=== PATIENT | male | born 1985 | race Caucasian/White ===

== ENCOUNTER 2021-01-15 08:58 | Emergency (ER) | payer OTHER, SELFPAY ==
[2021-01-15 09:08] VITALS: BP 133/85; PULSE 97; RESP 18; TEMP 36.9; O2SAT 97; BMI 33.3
--- NOTE | 2021-01-15 09:32 | ED_ITS ---
HPI - Nausea/Vomiting/Diarrhea General Chief complaint: Nausea/Vomiting/Diarrhea Stated complaint: VOMITING Time Seen by Provider: 01/15/21 09:25 Source: patient Mode of arrival: ambulatory Limitations: no limitations History of Present Illness HPI Narrative: 35 yo male previously healthy here with complaints of vomiting and diarrhea. The patient tells me that he had symptoms which began yesterday. He has not had any vomiting episodes yesterday and feels like this is improved. His last episode was last evening. He tells me he did have 2 episodes of diarrhea but feels like this is improving. His son had similar symptoms 3 days ago which lasted 24 hours and then resolved. He denies any abdominal pain, fevers, chills, cough, shortness of breath, chest pain, neck pain, joint pain, rashes. Associated nausea: Yes Related Data Allergies Allergy/AdvReac Type Severity Reaction Status Date / Time No Known Allergies Allergy Unverified 06/30/20 16:46 Review of Systems Review of Systems: Yes all other systems are reviewed and are negative Constitutional: Constitutional: Reports no additional constitutional complaints, Denies body ache(s), Denies chills, Denies fever(s), Denies headache(s) and Denies weakness Eyes: Eyes: Reports no additional eye complaints and Denies change in vision ENT: Reports system reviewed and no additional complaints, except as documented, Denies dizziness, Denies headache(s), Denies nasal congestion, Denies nasal discharge and Denies neck pain Cardiovascular: Cardiovascular: Reports no additional cardiovascular complaints, Denies chest pain, Denies leg edema and Denies dyspnea Respiratory: Respiratory: Reports no additional respiratory complaints, Denies cough and Denies dyspnea Gastrointestinal: Gastrointestinal: Reports no additional gastrointestinal complaints, Denies abdominal pain, Reports diarrhea, Reports nausea and Reports vomiting Genitourinary: Genitourinary: Denies urinary incontinence Musculoskeletal: Musculoskeletal: Reports no additional musculoskeletal complaints, Denies back pain, Denies arthralgias, Denies joint swelling, Denies neck pain, Denies numbness and Denies tingling Integumentary/Breasts: Skin/Breast: Reports system reviewed and no additional complaints, except as docu and Denies rash Neurologic: Reports system reviewed and no additional complaints, except as documented, Denies Abnormal speech present, Denies dizziness, Denies headache(s), Denies numbness, Denies tingling and Denies weakness [facility] Past Medical History Attestation statement: The following information was validated with the patient. Source: old records reviewed and nursing notes reviewed Social History Social History Advance Directives: No Advance Directives Information Provided: No Physical Exam Vital Signs: Vital Signs: Last Vital Signs Temp 98.5 F 01/15/21 09:08 Pulse 97 01/15/21 09:08 Resp 18 01/15/21 09:08 BP 133/85 01/15/21 09:08 Pulse Ox 97 01/15/21 09:08 Body Mass Index 33.3 Const: General: cooperative, healthy appearing, comfortable and no acute distress Orientation/consciousness: patient oriented x3 Limitations: no limitations HENMT: Head: Yes normal to inspection Ears: hearing grossly normal bilaterally General nose exam: Normal external nose present Face and sinus: Yes normal facial exam Mouth: Normal oral and palatal mucosa present Throat: Yes posterior oropharynx normal Eyes: General: appearance normal, both eyes and all related structures Pupils: Equal, round and reactive pupils present Neck: Neck: Yes normal visual inspection Chest: Chest palpation & inspection: normal inspection of the chest Resp: Effort & Inspection: normal respiratory effort Auscultation: clear to auscultation bilaterally Cardio: Rate: regular rate Rhythm: regular rhythm Peripheral pulses: Peripheral pulses 2+ throughout GI: Inspection: Yes normal to inspection Palpation (GI): Soft to palpation and nontender Auscultation: normal bowel sounds Back/Spine/Pelvis: Thoracic/Lumbar Spine: thoracic and lumbar spine normal to inspection Skin: General skin exam: no rashes or lesions noted Neuro: General: patient oriented x3, no focal motor deficits and normal sensation to monofilament Cranial nerves: Yes Equal, round and reactive pupils present Cognition (Neuro): normal cognition Speech: No Abnormal speech present Gait exam (Neuro): Normal gait present Motor exam (neuro): 5/5 motor strength present throughout Extrem: General: Yes normal to inspection Course Course Course Narrative: 35-year-old male here with vomiting and diarrhea for the last 24 hours which seems to be improving. Patient tells me his son had similar symptoms at home several days ago which resolved on its own. No focal abdominal pain on exam. Patient is drinking in the room and tolerating p.o. with no prob lems hemodynamically stable. Will check COVID screen. 1030-COVID screen negative. Likely viral gastroenteritis. Abdomen soft nontender. Drinking fluids with no additional vomiting episodes. Discussed with patient. Reviewed worrisome signs and symptoms and when to return to the emergency department including severe abdominal pain, 2 or more vomiting episodes, black or bloody stools. Comfortable discharge home. MDM - Nausea/Vomiting/Diarrhea Medical Records Attestation: I reviewed the patient's medical records. Lab Data Attestation: I reviewed the patient's lab results. Labs: Lab Results 01/15/21 Range/Units 09:51 COVID-19 ([facility]) Negative (Negative) COVID-19 Clin Com See Note Discharge Plan Discharge Clinical Impression: Gastroenteritis Patient Disposition: Home, Self-Care Instructions: Gastroenteritis (ED) Additional Instructions: Your COVID screen today was negative This is likely viral Increase fluids, rest Return for worsening abdominal pain, 2 or more episodes of vomiting, black or bloody stools Referrals: Physician,None [Primary Care Provider] - 2 days Stand Alone Forms: Work/School Release Interventions: ED Discharge Assessment Last Done: 01/15/21 10:34 Discharge Date/Time: 01/15/21 10:37
[2021-01-15 10:18] LABS: COVID-19 Test Negative (Negative); IDNOW Serial# 9DD0AD1C
== END 2021-01-15 10:37 | disposition home or self-care (01) ==
PROVIDERS: Nurse Practitioner Family; Emergency Provider Emergency Medicine
DX: K52.9 Noninfective gastroenteritis and colitis, unspecified (principal); Z20.822 Contact with and (suspected) exposure to COVID-19; R11.2 Nausea with vomiting, unspecified
CPT/HCPCS: 36415; 87635; 99283

== ENCOUNTER 2021-08-15 09:01 | Outpatient (REF) | payer OTHER, SELFPAY | END 2021-08-15 09:02 | disposition home or self-care (01) | LOC: HO.LAB 09:01 | PROVIDERS: Visit Provider Internal Medicine | DX: Z20.822 Contact with and (suspected) exposure to COVID-19 (principal) | CPT/HCPCS: C9803; U0003; U0005 ==

== ENCOUNTER 2022-05-15 17:11 | Emergency (ER) | payer OTHER, SELFPAY ==
--- NOTE | ~2022-05-15 | XR_ITS ---
EXAMINATION: XR SHOULDER, LEFT CLINICAL INFORMATION: Shoulder pain. Work-related injury. COMPARISON: None TECHNIQUE: Three views of the left shoulder. FINDINGS: The bones and soft tissues are normal. No fracture. Glenohumeral and acromioclavicular alignment is anatomic with normal joint space. No abnormal soft tissue calcifications. XR/XR shoulder LT min 2V IMPRESSION: Normal left shoulder.
--- NOTE | ~2022-05-15 | XR_ITS ---
EXAMINATION: XR CERVICAL SPINE CLINICAL INFORMATION: Shoulder pain. Work-related injury. COMPARISON: None TECHNIQUE: 4 views of the cervical spine. FINDINGS: Vertebral alignment is normal without spondylolisthesis. Vertebral body heights are normal. No fractures are evident. Intervertebral disc heights are well-preserved. Facet joints are unremarkable. Prevertebral soft tissues are normal. XR/XR cervical spine 2V IMPRESSION: Normal radiographs of the cervical spine.
[2022-05-15 19:05] VITALS: BP 131/76; PULSE 89; RESP 16; TEMP 36.6; O2SAT 98; BMI 33.3
--- NOTE | 2022-05-15 20:58 | ED.EXTPRO ---
HPI - Extremity Problem General Chief complaint: Extremity Injury, Upper Stated complaint: left shoulder/ arm pain Source: patient Mode of arrival: ambulatory Limitations: no limitations History of Present Illness HPI Narrative: 36-year-old male presents with injury to his left shoulder and trapezius after lifting heavy boxes earlier today. States the pain starts in his shoulder and radiates to his scapula and down the elbow. Does not report any other trauma, and states to have full range of motion although tender to raise his arms over his head. He did not report any neck pain, numbness and tingling, or loss of strength or sensation to the extremity. MD Complaint: extremity pain Onset (ago): day(s) (1) Pain Consistency: constant Location: left and upper extremity Severity scale (1-10): 5 Quality: aching Radiation: distal Exacerbating factors: range of motion and palpation Associated symptoms: denies other symptoms Context: other (Physical exertion) Related Data Allergies Allergy/AdvReac Type Severity Reaction Status Date / Time No Known Allergies Allergy Verified 05/15/22 19:05 Review of Systems Review of Systems: Constitutional: No Fever, No Chills ENT/Mouth: No Ear Pain, No Hoarseness, No sore throat Eyes: No Eye Pain, No Swelling, No Redness, No Foreign Body Cardiovascular: No Chest Pain, No SOB Respiratory: No Cough, No Dyspnea Gastrointestinal: No Nausea, No Vomiting, No Diarrhea, No abdominal Pain Genitourinary: No Dysuria, No Hematuria Musculoskeletal: positive left shoulder and trapezius pain, No Myalgias, No Joint Swelling Skin: No Skin lacerations, No rash Neuro: No Weakness, No Numbness, No Paresthesias, No Loss of Consciousness, No Dizziness, No Headache Psych: No Anxiety/Panic, No Depression Heme/Lymph: no easy bruising, no Lymphadenopathy Endocrine: No Polyuria, No Polydipsia Yes all other systems are reviewed and are negative [facility] Past Medical History Attestation statement: The following information was validated with the patient. Source: old records reviewed Social History Social History Advance Directives: No Advance Directives Information Provided: No Physical Exam Vital Signs: Vital Signs: Last Vital Signs Temp 98 F 05/15/22 19:05 Pulse 89 05/15/22 19:05 Resp 16 05/15/22 19:05 BP 131/76 05/15/22 19:05 Pulse Ox 98 05/15/22 19:05 O2 Del Method 05/15/22 19:05 BMI result Body Mass Index 33.3 Appearance: Alert. Oriented X3. No acute distress. Eyes: Pupils equal, round and reactive to light. ENT: Pharynx normal. Neck: Normal inspection. Neck supple. No vertebral tenderness or step-offs. No nuchal rigidity. Full range of motion active and passive and against resistance. CVS: Normal heart rate and rhythm. Pulses normal. Respiratory: No respiratory distress. Breath sounds normal. Abdomen: Soft and nontender. Skin: Skin warm and dry. Normal skin color. Normal skin turgor. Extremities: No lower extremity edema. Tenderness noted to the mid scapula, palpable muscle spasm noted. He has full passive and active range of motion although tender with adduction and abduction to the left shoulder. No acromion process tenderness. Strength 5/5. No tenderness to the elbow or cervical spine. Neuro: No motor deficit. No sensory deficit. Cranial nerves 2-12 intact. Course Course Course Narrative: 36-year-old male presents to the emergency department for evaluation after hurting his shoulder while lifting boxes over his head earlier today. States the pain starts in his shoulder on the left side and radiates to his scapula. Most of his pain is in his trapezius, does not have any vertebral tenderness or tenderness to the ligaments of the shoulder. Has full strength and range of motion active and passive to all extremities. Will order some x-rays. 21:45 x-rays are negative for acute findings. Supportive measures encouraged, alternating Tylenol and Motrin. Following up with [facility] in the next 3 days. Patient verbalized understanding of and agrees plan of care discharge home. Verbalized understanding of signs symptoms indicating need for emergent intervention. MDM - Extremity (Nontraumatic) MDM Narrative Medical decision making narrative: Musculoskeletal strain, tendon ligament injury Medical Records Attestation: I reviewed the patient's medical records. Imaging Data Cervical spine and shoulder x-ray: Attestation: I personally reviewed and interpreted this imaging study as follows: Radiologist's impression: EXAMINATION: XR CERVICAL SPINE CLINICAL INFORMATION: Shoulder pain. Work-related injury. COMPARISON: None TECHNIQUE: 4 views of the cervical spine. FINDINGS: Vertebral alignment is normal without spondylolisthesis. Vertebral body heights are normal. No fractures are evident. Intervertebral disc heights are well-preserved. Facet joints are unremarkable. Prevertebral soft tissues are normal.? XR/XR cervical spine 2V IMPRESSION: Normal radiographs of the cervical spine. EXAMINATION: XR SHOULDER, LEFT CLINICAL INFORMATION: Shoulder pain. Work-related injury.? COMPARISON: None? TECHNIQUE: Three views of the left shoulder. FINDINGS: The bones and soft tissues are normal. No fracture. Glenohumeral and acromioclavicular alignment is anatomic with normal joint space. No abnormal soft tissue calcifications.? XR/XR shoulder LT min 2V IMPRESSION: Normal left shoulder. Discharge Plan Discharge Clinical Impression: Musculoskeletal strain Patient Disposition: Home, Self-Care Instructions: Cervical Strain (ED), Muscle Strain (ED) Additional Instructions: You were evaluated for left shoulder and muscle pain after a work related injury. X-rays are negative for acute findings. Please follow-up with [facility] in the next 3 days if symptoms persist. Alternate Tylenol 650 mg every 6 hours as needed and Motrin 600 mg every 6 hours as needed for pain management. Her last dose of Motrin was given to you at 20:00. Your next dose is due at 02:00. Consider taking Tylenol at 23:00 so you can take a medication every 3 hours to help alleviate pain. write down with time you take these medications to prevent accidental overdose. Thank you for choosing this emergency department for evaluation. Please follow-up with primary care physician as needed. Return to the emergency department for any new, concerning, or worsening symptoms. Referrals: [facility] [Provider Group] - 3 days (Left shoulder strain) Stand Alone Forms: Work/School Release Interventions: ED Discharge Assessment Last Done: 05/15/22 21:57 Discharge Date/Time: 05/15/22 21:58
[2022-05-15] MEDS: Ibuprofen 600 MG TABLET PO (21:38)
== END 2022-05-15 21:58 | disposition home or self-care (01) ==
PROVIDERS: Emergency Provider Emergency Medicine
DX: S46.912A Strain of unspecified muscle, fascia and tendon at shoulder and upper arm level, left arm, initial encounter (principal); X50.0XXA Overexertion from strenuous movement or load, initial encounter; Y93.89 Activity, other specified; Y92.59 Other trade areas as the place of occurrence of the external cause; Y99.0 Civilian activity done for income or pay
CPT/HCPCS: 72040; 73030; 99283

== ENCOUNTER 2022-08-27 09:30 | Emergency (ER) | payer SELFPAY ==
--- NOTE | ~2022-08-27 | CT_ITS ---
CT head/brain wo IV con CLINICAL INFORMATION: Headache dizziness COMPARISON: No prior CT scan available for comparison. TECHNIQUE: Department standard protocol. This CT examination was performed using dose optimization techniques as appropriate, variously including the following: *Automated exposure control *Adjustment of mA and/or kV according to patient size (this includes techniques or standardized protocols for targeted exams where dose is matched to indication/reason for exam; i.e. extremities or head) *Use of iterative reconstruction technique DLP: 715 mGy-cm FINDINGS: CEREBRAL HEMISPHERES: There is no evidence of intra-axial or extra-axial mass, hemorrhage or acute infarct. BRAIN PARENCHYMA: Normal ilra-white matter differentiation. SUBDURAL SPACE: No bleed. BASAL GANGLIA AND PINEAL GLAND: Unremarkable VENTRICLES: Symmetric and normal in size. CEREBELLUM AND BRAINSTEM: No space-occupying mass, hemorrhage or acute infarct. CEREBELLOPONTINE ANGLES: No lesion found. ORBITS: No intraorbital mass. VESSELS: Unremarkable SKULL BASE: Unremarkable INCLUDED SINUSES AT SKULL BASE: Clear SKULL AND SKIN: No fracture or bone lesion found. CT/CT head/brain wo IV con IMPRESSION: No CT evidence of intracranial space-occupying mass, bleed or infarct.
[2022-08-27 09:40] VITALS: BP 144/82; PULSE 76; RESP 18; TEMP 36.6; O2SAT 98; BMI 33.3
[2022-08-27 14:43] VITALS: BP 119/82; PULSE 73; RESP 16; O2SAT 97
--- NOTE | 2022-08-27 14:49 | PC.NURSE ---
This RN met with pt, pt is A&O x4. C/o headache, dizziness upon waking up and seeing a purple halo in left eye intermittently. Pt is not currently dizzy and has a mild headache. VSS. Pt has call dunne in place. Awaiting MD to see pt
--- NOTE | 2022-08-27 16:01 | ECG_ITS ---
Test Reason : headache Blood Pressure : / mmHG Vent. Rate : 064 BPM Atrial Rate : 064 BPM P-R Int : 168 ms QRS Dur : 088 ms QT Int : 412 ms P-R-T Axes : 051 077 024 degrees QTc Int : 425 ms Normal sinus rhythm Normal ECG No previous ECGs available Referred By: Marybeth Millard Electronically Signed By:ADILSON DIXON MD
--- NOTE | 2022-08-27 16:01 | ED.GENADULT ---
HPI - General Adult General Chief complaint: General Medical Stated complaint: Headache/L eye vision issues Time Seen by Provider: 08/27/22 16:00 Source: patient Mode of arrival: ambulatory Limitations: no limitations History of Present Illness HPI narrative: 37 yeear old male with no PMHx presents to the ED with 1 week history of left eye blurriness and headache. He describes the headache as throbbing in nature associated with light and sound sensitivity associated with short episode of lightheadedness in the morning. He reports that the head ache and left eye blurriness happen concurrently. He denies any recent infection, nausea or vomiting. Onset (ago): week(s) Location: head and eyes (Lef eye) Radiation: non-radiation Severity: moderate Pain Consistency: constant Related Data Previous Rx's Medication Instructions Recorded [id number] 1 cap PO Q8H PRN pain #14 caps 08/27/22 50 mg-300 mg-40 mg capsule (Fioricet) Allergies Allergy/AdvReac Type Severity Reaction Status Date / Time No Known Allergies Allergy Verified 05/15/22 19:05 Review of Systems Review of Systems: Constitutional: No Fever, No Chills ENT/Mouth: No sore throat, No Rhinorrhea, No Swallowing Difficulty Eyes: +left Eye Pain, No Swelling, No Redness Cardiovascular: No Chest Pain, No SOB, No Orthopnea, No Edema Respiratory: No Cough, No Sputum, No Wheezing, No dyspnea Gastrointestinal: No Nausea, No Vomiting, No Diarrhea, No abdominal Pain, No Hematochezia, No Melena Genitourinary: No Dysuria, No Urinary Frequency, No Hematuria Musculoskeletal: No joint pain, No Myalgias Skin: No Skin Lesions, No rash Neuro: No Weakness, No Numbness, No Dizziness, +Headache , + Lightheadedness Psych: No Anxiety/Panic, No Depression Heme/Lymph: No Bruising, No Lymphadenopathy Endocrine: No Polyuria, No Polydipsia PMFSH Past Medical History Attestation statement: The following information was validated with the patient. Social History Social History Advance Directives: No Advance Directives Information Provided: Yes Physical Exam ED Vital Signs: Vital Signs - 24 hr 08/27/22 09:40 08/27/22 14:43 08/27/22 18:12 Temperature 98 F 97.9 F Pulse Rate 76 73 68 Respiratory Rate 18 16 17 Blood Pressure 144/82 H 119/82 122/68 Pulse Oximetry 98 97 99 Oxygen Delivery Method Room Air Room Air Room Air BMI result Body Mass Index 33.3 Appearance: Alert. Oriented X3. No acute distress. Head/Face: Frontal sinuses tenderness Eyes: Pupils equal, round and reactive to light. ENT: Pharynx normal. ,No erythema Neck: Normal inspection. Neck supple. CVS: Normal heart rate and rhythm. Pulses normal. Respiratory: No respiratory distress. Breath sounds normal. Lung CTA Abdomen: Soft and nontender. +BS x4 Skin: Skin warm and dry. Normal skin color. Normal skin turgor. No rashes. Extremities: No lower extremity edema. Neuro: Oriented X 3. No motor deficit. No sensory deficit. CN II-XII intact. Course Course Course Narrative: 37-year-old male presents to the ER for evaluation of headache, dizziness, left eye blurriness for the last 4 days. No history of migraines. Neuro exam is nonfocal. Most likely ocular migraine however given this is the 1st event will get CT scan and lab workup. EKG also ordered for dizziness. Results pending dispo and improvement. Will medicate with IV Toradol, Reglan, Benadryl and reassess. Reevaluation(s) Reevaluation #1: Lab workup was unremarkable. EKG without ischemic changes. CT scan is normal. Patient is feeling much better after the medications. At this time is stable for discharge home with ppio Gutiérrez for migraines. He will work on getting a PCP. Medications Administered Discontinued Medications Generic Name Dose Route Start Last Admin Trade Name Freq PRN Reason Stop Dose Admin Diphenhydramine HCl 50 mg 08/27/22 16:26 08/27/22 17:33 Diphenhydramine Hcl 50 Mg/Ml Vial IVPUSH 08/27/22 16:27 50 mg ONCE ONE Administration Sodium Chloride 1,000 mls @ 999 mls/hr 08/27/22 16:30 08/27/22 18:35 Ns IVCONT 08/27/22 17:30 Infused .Q1H1M TAMMY Infusion Ketorolac Tromethamine 30 mg 08/27/22 16:26 08/27/22 17:33 Ketorolac Tromethamine 30 Mg/Ml Vial IVPUSH 08/27/22 16:27 30 mg ONCE ONE Administration Metoclopramide HCl 10 mg 08/27/22 16:26 08/27/22 17:33 Metoclopramide Hcl 10 Mg/2 Ml Vial IVPUSH 08/27/22 16:27 10 mg ONCE ONE Administration Medical Decision Making MDM Narrative Medical decision making narrative: 37 year old male with no PMHx presents to the ED with 1 week history of left eye blurriness , throbbing headache with phonophobia and photophobia and discrete episode of lightheadedness in the morning. On exam VSS, Lung CTA, frontal sinuses tenderness, photophobia. Concern for Migraine vs Intracranial mass vs Glaucoma. Low suspicion for CVA, Tension headache. Plan: Labs, EKG, CT head, Toradol/Benadryl/Reglan Lab Data Result diagrams: 08/27/22 16:26 08/27/22 16:26 Labs: Lab Results 08/27/22 08/27/22 08/27/22 Range/Units 16:26 16:26 16:26 WBC 11.2 H (4.8-10.8) X10*3/uL RBC 5.58 (4.60-5.80) X10*6/uL Hgb 14.7 (14.0-18.0) g/dl Hct 46.1 (42.0-52.0) % MCV 82.6 (80.0-98.0) fL MCH 26.3 L (27.0-33.0) pg MCHC 31.9 (31.0-36.0) g/dl RDW 13.3 (11.0-16.0) % Plt Count 393 (160-400) X10*3/uL MPV 9.6 (9.4-12.4) fL Immature Gran % (Auto) 0.4 (0.0-0.4) % Neut % (Auto) 69.7 (45-73) % Lymph % (Auto) 21.9 (20-40) % Perry % (Auto) 6.1 (2-11) % Eos % (Auto) 1.6 (0-4) % Baso % (Auto) 0.3 (0-2) % Lymph # (Auto) 2.4 (1.2-4.9) X10*3/uL Perry # (Auto) 0.7 (0.1-1.2) X10*3/uL Eos # (Auto) 0.2 (0.0-0.4) X10*3/uL Baso # (Auto) 0.0 (0.0-0.2) X10*3/uL Abs Immat Gran (auto) 0.05 H (0.00-0.03) X10*3/uL Absolute Neuts (auto) 7.8 (2.0-8.3) x10*3/uL Absolute Nucleated RBC 0.000 (0.0-0.012) X10*3/uL Nucleated RBC % (auto) 0.0 (0.0-0.2) /100WBC Sodium 139 (135-145) mmol/L Potassium 4.6 (3.3-5.1) mmol/L Chloride 102 (96-108) mmol/L Carbon Dioxide 25 (22-29) mmol/L Anion Gap 17 (12-20) BUN 14 (9-16) mg/dL Creatinine 0.78 (0.5-1.4) mg/dL Estim Creat Clear Calc 136.8 Estimated GFR > 60 Random Glucose 83 (60-115) mg/dL Calcium 9.8 (8.4-10.2) mg/dL Magnesium 2.3 (1.6-2.6) mg/dL Total Bilirubin 0.5 (0.0-1.0) mg/dL Direct Bilirubin 0.2 (0.0-0.5) mg/dL AST 19 (5-37) U/L ALT 29 (0-40) U/L Alkaline Phosphatase 93 (39-117) U/L Total Protein 7.8 (6.5-8.0) g/dL Albumin 4.6 (3.5-5.0) g/dL Urine Opiates Screen (Not Detect) Urine Fentanyl Screen (Not Detect) Ur Barbiturates Screen (Not Detect) Ur Phencyclidine Scrn (Not Detect) Ur Amphetamines Screen (Not Detect) U Benzodiazepines Scrn (Not Detect) Urine Cocaine Screen (Not Detect) U Marijuana (THC) Screen (Not Detect) Ethyl Alcohol mg/dL COVID-19 ([facility]) Negative (Negative) COVID-19 Clin Com See Note Influenza Type A ([facility]) Influenza Type B ([facility]) Influenza A & B Note 08/27/22 08/27/22 08/27/22 Range/Units 16:26 16:26 16:28 WBC (4.8-10.8) X10*3/uL RBC (4.60-5.80) X10*6/uL Hgb (14.0-18.0) g/dl Hct (42.0-52.0) % MCV (80.0-98.0) fL MCH (27.0-33.0) pg MCHC (31.0-36.0) g/dl RDW (11.0-16.0) % Plt Count (160-400) X10*3/uL MPV (9.4-12.4) fL Immature Gran % (Auto) (0.0-0.4) % Neut % (Auto) (45-73) % Lymph % (Auto) (20-40) % Perry % (Auto) (2-11) % Eos % (Auto) (0-4) % Baso % (Auto) (0-2) % Lymph # (Auto) (1.2-4.9) X10*3/uL Perry # (Auto) (0.1-1.2) X10*3/uL Eos # (Auto) (0.0-0.4) X10*3/uL Baso # (Auto) (0.0-0.2) X10*3/uL Abs Immat Gran (auto) (0.00-0.03) X10*3/uL Absolute Neuts (auto) (2.0-8.3) x10*3/uL Absolute Nucleated RBC (0.0-0.012) X10*3/uL Nucleated RBC % (auto) (0.0-0.2) /100WBC Sodium (135-145) mmol/L Potassium (3.3-5.1) mmol/L Chloride (96-108) mmol/L Carbon Dioxide (22-29) mmol/L Anion Gap (12-20) BUN (9-16) mg/dL Creatinine (0.5-1.4) mg/dL Estim Creat Clear Calc Estimated GFR Random Glucose (60-115) mg/dL Calcium (8.4-10.2) mg/dL Magnesium (1.6-2.6) mg/dL Total Bilirubin (0.0-1.0) mg/dL Direct Bilirubin (0.0-0.5) mg/dL AST (5-37) U/L ALT (0-40) U/L Alkaline Phosphatase (39-117) U/L Total Protein (6.5-8.0) g/dL Albumin (3.5-5.0) g/dL Urine Opiates Screen Not Detected (Not Detect) Urine Fentanyl Screen Not Detected (Not Detect) Ur Barbiturates Screen Not Detected (Not Detect) Ur Phencyclidine Scrn Not Detected (Not Detect) Ur Amphetamines Screen Not Detected (Not Detect) U Benzodiazepines Scrn Not Detected (Not Detect) Urine Cocaine Screen Not Detected (Not Detect) U Marijuana (THC) Screen Not Detected (Not Detect) Ethyl Alcohol < 10 mg/dL COVID-19 ([facility]) (Negative) COVID-19 Clin Com Influenza Type A ([facility]) Cancelled Influenza Type B ([facility]) Cancelled Influenza A & B Note Cancelled ECG Data Attestation: I personally reviewed and interpreted this ECG as follows: Prior ECG tracings: not available for review Interpretation: Normal sinus rhythm, ventricular rate 64 beats per minute, normal QTC, normal QRS, no ST segment elevations or depressions Critical Care Time Critical Care Time Critical Care Time: No Discharge Plan Discharge Clinical Impression: Migraine Patient Disposition: Home, Self-Care Instructions: Migraine Headache (ED) Additional Instructions: Your lab workup today was normal. Your head CT was normal. Most likely experience migraine headache. Take the prescribed medications as needed for this. Recommend following with primary care doctor. If you develop new or worsening symptoms call 911 or come back to the ER for further evaluation. Prescriptions: New uozybmwpdm-ijkblawlrqrqi-[id number] [Fioricet] 50-300-40 mg capsule 1 cap PO Q8H PRN (Reason: pain) Qty: 14 0RF Stand Alone Forms: Work/School Release
[2022-08-27 16:42] LABS: MANUAL DIFF FLAG NO
[2022-08-27 16:46] LABS: Basophils Percent Auto 0.3 % (0-2); Eosinophils Absolute Auto 0.2 X10*3/uL (0.0-0.4); Eosinophils Percent Auto 1.6 % (0-4); Hematocrit 46.1 % (42.0-52.0); Hemoglobin 14.7 g/dl (14.0-18.0); Imm Gran Abs Auto 0.05 X10*3/uL (0.00-0.03); Imm Gran Pct Auto 0.4 % (0.0-0.4); Lymphocytes Absolute Auto 2.4 X10*3/uL (1.2-4.9); Lymphocytes Percent Auto 21.9 % (20-40); Mean Corpuscular HGB Conc 31.9 g/dl (31.0-36.0); Mean Corpuscular Hemoglobin 26.3 pg (27.0-33.0); Mean Corpuscular Volume 82.6 fL (80.0-98.0); Mean Platelet Volume 9.6 fL (9.4-12.4); Monocytes Absolute Auto 0.7 X10*3/uL (0.1-1.2); Monocytes Percent Auto 6.1 % (2-11); Neutrophils Absolute Auto 7.8 x10*3/uL (2.0-8.3); Neutrophils Percent Auto 69.7 % (45-73); Platelet Count 393 X10*3/uL (160-400); Red Blood Count 5.58 X10*6/uL (4.60-5.80); Red Cell Distribution Width 13.3 % (11.0-16.0); White Blood Count 11.2 X10*3/uL (4.8-10.8)
[2022-08-27 16:59] LABS: Ethanol < 10 mg/dL
[2022-08-27 17:00] LABS: COVID-19 Test Negative (Negative); IDNOW Serial# BCCEAD1C
[2022-08-27 17:02] LABS: Alanine Aminotransferase 29 U/L (0-40); Albumin Level 4.6 g/dL (3.5-5.0); Alkaline Phosphatase 93 U/L (39-117); Anion Gap 17 (12-20); Aspartate Amino Transferase 19 U/L (5-37); Bilirubin Direct 0.2 mg/dL (0.0-0.5); Bilirubin Total 0.5 mg/dL (0.0-1.0); Blood Urea Nitrogen 14 mg/dL (9-16); Calcium 9.8 mg/dL (8.4-10.2); Carbon Dioxide 25 mmol/L (22-29); Chloride 102 mmol/L (96-108); Creatinine Clr Calc Pharmacy 136.8; Estimated Glomerular Filt Rate > 60; Glucose Random 83 mg/dL (60-115); Magnesium 2.3 mg/dL (1.6-2.6); Potassium 4.6 mmol/L (3.3-5.1); Sodium 139 mmol/L (135-145); Total Protein 7.8 g/dL (6.5-8.0)
[2022-08-27 17:03] LABS: Amphetamine Screen Urine Not Detected (Not Detect); Barbiturates, Urine Not Detected (Not Detect); Benzodiazepines Screen Urine Not Detected (Not Detect); Cannabinoid Screen Urine Not Detected (Not Detect); Cocaine Screen Urine Not Detected (Not Detect); Fentanyl, urine Not Detected (Not Detect); Phencyclidine Screen Urine Not Detected (Not Detect)
[2022-08-27] MEDS: diphenhydrAMINE HCL 50 MG/ML VIAL IVPUSH (17:33)
[2022-08-27] MEDS: 0.9 % Sodium Chloride 1,000 ML 999 ML IVCONT (17:33)
[2022-08-27] MEDS: Ketorolac Tromethamine 30 MG/ML VIAL IVPUSH (17:33)
[2022-08-27] MEDS: Metoclopramide HCl 10 MG/2 ML VIAL IVPUSH (17:33)
[2022-08-27 17:39] LABS: Opiate Screen Urine Not Detected (Not Detect)
[2022-08-27 18:12] VITALS: BP 122/68; PULSE 68; RESP 17; TEMP 36.6; O2SAT 99
== END 2022-08-27 18:59 | disposition home or self-care (01) ==
PROVIDERS: Physician Assistant; Emergency Provider Internal Medicine
DX: G43.909 Migraine, unspecified, not intractable, without status migrainosus (principal); Z20.822 Contact with and (suspected) exposure to COVID-19
CPT/HCPCS: 70450; 80048; 80076; 80307; 82077; 83735; 85025; 87635; 93005; 96361; 96374; 96375; 99284; J1200; J1885; J2765

== ENCOUNTER 2024-05-08 08:49 | Emergency (ER) | payer SELFPAY ==
[2024-05-08 08:58] VITALS: BP 150/91; PULSE 71; RESP 16; TEMP 36.6; O2SAT 98; BMI 40.4
--- NOTE | 2024-05-08 09:15 | ED.GENADULT ---
HPI - General Adult General Chief complaint: Wound/Laceration Stated complaint: toe infection Time Seen by Provider: 05/08/24 09:12 Source: patient Mode of arrival: ambulatory Limitations: no limitations History of Present Illness HPI narrative: Patient is a 38-year-old male who presents emergency department for evaluation of right great toe concern. Reports over the past 2 days he has been experiencing green drainage, swelling and redness with pain. He wears closed toe shoes at work and reports increased pain while working, he missed work today. He states he is not a diabetic. He denies any injury. He admits to having an ingrown toenail that he cut but then the toe became swollen Related Data Previous Rx's ?Medication ?Instructions ?Recorded izckwmhxvv-uorgthifpzqra-hnvqgoew 1 cap PO Q8H PRN pain #14 caps 08/27/22 50 mg-300 mg-40 mg capsule (Fioricet) amoxicillin 875 mg-potassium 1 tab PO BID #14 tabs 05/08/24 clavulanate 125 mg tablet Allergies Allergy/AdvReac Type Severity Reaction Status Date / Time No Known Allergies Allergy Verified 05/08/24 09:00 Review of Systems Review of Systems: Yes all other systems are reviewed and are negative PMFSH Past Medical History Attestation statement: The following information was validated with the patient. Source: old records reviewed Physical Exam ED Vital Signs: Vital Signs - 24 hr 05/08/24 08:58 Temperature 97.8 F Pulse Rate 71 Respiratory Rate 16 Blood Pressure 150/91 H Pulse Oximetry 98 Oxygen Delivery Method Room Air BMI result Body Mass Index 40.4 Appearance: Alert.?Oriented to person, place and time. No acute distress.?Normal affect. CVS: Heart sounds normal. Normal heart rate and rhythm.? Pulses normal.?? Respiratory: No respiratory distress.? Lung sounds clear to auscultation bilaterally?? Skin: Skin warm and dry.? Normal skin color.? Right great toe medial aspect of the nail plate with indurated erythema, no fluctuance, and tenderness upon palpation. Crusted green discharge along the distal tip. No erythema or streaking up the leg. Extremities: No lower extremity edema.? Full range of motion to right foot and digits. Neuro: Moves all extremities spontaneously. Sensation intact bilaterally. Ambulates with normal steady gait. Medical Decision Making Medical Decision Making MDM Narrative: Patient is a 38-year-old male who presents to the emergency department for evaluation of right great toe concern as per HPI. On examination consistent with acute paronychia, at this time no areas of fluctuance that would be amenable to drainage, has been actively draining over the past 2 days. Digital pressure test is negative, no blanching. Does not appear consistent with felon, herpetic leonard. Will treat with course of oral antibiotics, and advised outpatient follow-up for persistent symptoms. At this time no signs of systemic toxicity. Differential Diagnosis Differential Diagnoses: The differential diagnosis associated with the presentation includes (See narrative above) External Record Review External record reviewed: Outpatient record Prescription Management I considered prescription management with: Pain Medication and Antibiotic Discharge Plan Discharge Clinical Impression: Paronychia of great toe of right foot Patient Disposition: Home, Self-Care Instructions: Paronychia (ED) Additional Instructions: You can take ibuprofen 200 mg, 3 tablets (600mg) every 6-8 hours as needed for pain, in addition to Tylenol 500 mg, 2 tablets (1,000mg) every 4-6 hours as needed for pain, but not to exceed 3 doses daily (3,000mg).? Complete the entire course of antibiotics as prescribed. Follow-up as needed for persistent symptoms. Prescriptions: New amoxicillin-pot clavulanate 875-125 mg tablet 1 tab PO BID Qty: 14 0RF No Action qlxumuoahu-detczvoflxdow-twdi [Fioricet] 50-300-40 mg capsule 1 cap PO Q8H PRN (Reason: pain) Qty: 14 0RF Referrals: Physician,None [Primary Care Provider] - Stand Alone Forms: Work/School Release Print Language: Maldivian
[2024-05-08 10:07] VITALS: BP 00/00; PULSE 0; RESP 0; TEMP -17.7; TEMP 0; O2SAT 0
== END 2024-05-08 10:08 | disposition home or self-care (01) ==
PROVIDERS: Emergency Provider Emergency Medicine
DX: L03.031 Cellulitis of right toe (principal); M79.674 Pain in right toe(s)
CPT/HCPCS: 99282; 99283

== ENCOUNTER 2024-08-30 05:56 | Emergency (ER) | payer MEDICAID, SELFPAY ==
--- NOTE | 2024-08-30 | ECG_ITS ---
Test Reason : Dizziness Blood Pressure : / mmHG Vent. Rate : 057 BPM Atrial Rate : 057 BPM P-R Int : 160 ms QRS Dur : 092 ms QT Int : 452 ms P-R-T Axes : 047 087 018 degrees QTc Int : 439 ms Sinus bradycardia Otherwise normal ECG When compared with ECG of 27-AUG-2022 16:56, No significant change was found Referred By: Generic ED Physician Electronically Signed By:Taran Johnston
--- NOTE | ~2024-08-30 | CT_ITS ---
EXAMINATION: CT HEAD WITHOUT CONTRAST CLINICAL INFORMATION: Headache COMPARISON: None available. TECHNIQUE: Contiguous axial imaging was performed from the skull base to vertex without intravenous administration of contrast. This CT examination was performed using dose optimization techniques as appropriate, variously including the following: *Automated exposure control *Adjustment of mA and/or kV according to patient size (this includes techniques or standardized protocols for targeted exams where dose is matched to indication/reason for exam; i.e. extremities or head) *Use of iterative reconstruction technique DLP: 679 mGy-cm FINDINGS: There is no evidence of acute intracranial hemorrhage or territorial infarction. No abnormal mass effect or midline shift is seen. Davis to white matter differentiation is well preserved. No extra-axial fluid collections are identified. The ventricles are normal in size. There is no abnormal attenuation within the brain parenchyma. The osseous structures and soft tissues are normal. The mastoid air cells and visualized portions of the paranasal sinuses are well-aerated. CT/CT head/brain wo IV con IMPRESSION: No acute intracranial pathology. Electronically signed by: Sajan Sierra MD 08/30/2024 08:42 AM [facility]
[2024-08-30 06:15] VITALS: BP 141/88; PULSE 73; RESP 16; TEMP 36.8; O2SAT 96; BMI 39.0
[2024-08-30 06:53] LABS: MANUAL DIFF FLAG NO
--- NOTE | 2024-08-30 07:05 | ED_ITS ---
HPI - General Adult General Chief complaint: General Medical Stated complaint: flu like Time Seen by Provider: 08/30/24 06:39 Source: patient Mode of arrival: ambulatory Limitations: no limitations History of Present Illness ED Provider: KVNG GORDON PA-C HPI narrative: 39 year old male with no significant pmhx presents to the emergency department today for evaluation of headache, runny nose, cough, nausea and diarrhea x24 hours. Patient states that after completing a drill yesterday he got into his car and began experiencing these symptoms. Initially he described the sensation as dizziness however on further questioning, he describes more of a headache. Reports constant throbbing sensation in his head. He does not feel lightheaded. Denies room spinning sensation. Endorses associated nausea without vomiting and photophobia. Admits to dry cough, nasal congestion, and one episode of loose stool yesterday. He reports completing these drills one weekend every month. He has never had these symptoms following a drill in the past. Denies head strike/ injury/ fall during drill. Reports staying adequately hydrated. At present, admits to continued headache. 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 Denies history of migraines. No known sick contacts. Denies fever, chills, sore throat, chest pain, palpitations, sob, abdominal pain, constipation, dysuria, hematuria. Related Data Previous Rx's ?Medication ?Instructions ?Recorded ldrylabbqo-wbikngpmtypqk-zoolvncw 1 cap PO Q8H PRN pain #14 caps 08/27/22 50 mg-300 mg-40 mg capsule (Fioricet) amoxicillin 875 mg-potassium 1 tab PO BID #14 tabs 05/08/24 clavulanate 125 mg tablet gumyxtu-pqrvscxzncely-jkomgnqg 250 1 tab PO Q6H PRN pain (scale score 08/30/24 mg-250 mg-65 mg tablet (Excedrin 4-6) #10 tabs Migraine) diphenhydramine HCl 50 mg tablet 50 mg PO Q8H PRN nausea and 08/30/24 (Benadryl Allergy) vomiting #20 tabs metoclopramide HCl 10 mg tablet 10 mg PO Q6H PRN nausea and 08/30/24 (Reglan) vomiting #10 tabs Allergies Allergy/AdvReac Type Severity Reaction Status Date / Time No Known Allergies Allergy Verified 08/30/24 06:17 Review of Systems 2 Review of Systems: Constitutional: No fever, chills, fatigue, night sweats, weight changes ENT/Mouth: No ear pain, hearing loss, nasal congestion, sinus pain, rhinorrhea, sore throat Eyes: No eye pain, swelling, redness, vision changes, discharge Cardio: No chest pain, palpitations, BELL, orthopnea, peripheral edema Pulm: No SOB, cough, sputum, wheezing, dyspnea, hemoptysis GI: No nausea, vomiting, hematemesis, abdominal pain, diarrhea, constipation, hematochezia, melena : No irregular bleeding, dysuria, frequency, urgency, hesitancy, hematuria, flank pain, urinary flow changes, urinary incontinence or retention MSK: No back pain, neck pain, joint pain, myalgias Skin: No lesions, rashes Neuro: No weakness, numbness, paresthesias, LOC, dizziness, +headache Psych: No anxiety/panic, depression, SI/HI, AH/VH All other systems reviewed and are negative. [facility] Past Medical History Attestation statement: The following information was validated with the patient. Source: old records reviewed and nursing notes reviewed Social History Social History Smoked in Last 30 Days: No Use of substances other than those prescribed or required for medical reasons: No Advance Directives: No Advance Directives Information Provided: No Do you have a plan to hurt others: No Plan Physical Exam ED Vital Signs: Vital Signs - 24 hr 08/30/24 06:15 08/30/24 07:29 08/30/24 07:29 Temperature 98.2 F Pulse Rate 73 61 64 Respiratory Rate 16 Blood Pressure 141/88 H 118/84 132/87 Pulse Oximetry 96 Oxygen Delivery Method Room Air 08/30/24 07:29 08/30/24 09:27 08/30/24 09:28 Temperature 0 F L Pulse Rate 69 63 63 Respiratory Rate 18 18 Blood Pressure 134/95 H 115/73 115/73 Pulse Oximetry 98 98 Oxygen Delivery Method Room Air Room Air BMI result Body Mass Index 39.0 Vital signs stable General: Well appearing, in no acute distress. Skin: Warm, dry, intact. No rashes or lesions. Head: Normocephalic, atraumatic. EENT: Hearing is intact b/l. Conjunctiva clear. PERRLA. Noted photophobia. No nystagmus. Moist mucous membranes.? Neck: Supple without LAD Cardiac: Chest wall symmetric. RRR. No JVD. Lungs: Normal respiratory effort without accessory muscle use. CTA bilaterally Abdomen: Soft, non-tender, non-distended. No rebound tenderness or guarding. Positive BS x4. No CVAT. Back: No midline spinous or paraspinal tenderness. No step off deformity. Ext: Upper and lower extremities atraumatic, without tenderness, deformity, swelling or erythema. Full ROM throughout. No calf tenderness. Neuro: AOx3. Normal speech. Strength 5/5 intact throughout. No saddle anesthesia. Sensation intact to light touch. NV intact distally. Normal uhcots-ly-deyn, flfv-vk-tsaa. Ambulating with steady gait. Psych: Appropriate mood and affect. Responds appropriately to questions. Course Course Course Narrative: 919 -- cbc without leukocytosis or left shift. no anemia. h&h stable. chemistry without acute elecctrolyte abnormality requiring intervention. no ivett. normal liver function. troponin wnl. ortho vitals negative. ct head/brain without bleed or mass. ekg showing sinus bradycardia w/ rate of 57 bpm, no acute ischemic changes or st elevations. negative covid/ flu/ rsv. > on re-evaluation, patient reports almost complete resolution of headache following toradol/ benadryl/ reglan admin. given unremarkable work up, patient stable for discharge home at this time. Patient has remained stable throughout ED visit today. Discussed worrisome signs and symptoms and when to return to the ED. All questions answered at this time. Patient is agreeable with disposition and stable for discharge. Medications Administered Discontinued Medications Generic Name Dose Route Start Last Admin Trade Name Freq PRN Reason Stop Dose Admin Diphenhydramine HCl 25 mg 08/30/24 07:11 08/30/24 08:02 Diphenhydramine Hcl 50 Mg/Ml Vial IVPUSH 08/30/24 07:12 25 mg ONCE ONE Administration Ketorolac Tromethamine 15 mg 08/30/24 07:11 08/30/24 08:03 Ketorolac Tromethamine 15 Mg/Ml Vial IVPUSH 08/30/24 07:12 15 mg ONCE ONE Administration Metoclopramide HCl 10 mg 08/30/24 07:11 08/30/24 08:02 Metoclopramide Hcl 10 Mg/2 Ml Vial IVPUSH 08/30/24 07:12 10 mg ONCE ONE Administration Medical Decision Making Medical Decision Making [facility] Narrative: 39 year old male with no significant pmhx presents to the emergency department today for evaluation of headache, runny nose, cough, nausea and diarrhea x24 hours. vital signs stable. he is nontoxic appearing and in NAD. lying comfortably on the exam bed. exam nonfocal. cerebellum intact. abd soft nd/nt, no rebound/ guarding. lungs clear. ambulating with steady gait. Differential diagnosis includes migraine vs tension type headache, viral syndrome, anemia, electrolyte abnormality, dehydration, arrhythmia, gastroenteritis. No headache red flags. Neurologic exam without evidence of meningismus. No focal neurologic findings. Presentation not consistent with acute intracranial bleed including SAH (lack of risk factors, headache history). 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 Temporal arteritis unlikely, as is acute angle closure glaucoma given history and physical findings. Presentation not consistent with other acute, emergent causes of headache at this time. Plan: pain medication, labs, ekg, ortho vitals, CT head, re-evaluation. Differential Diagnosis Differential Diagnoses: The differential diagnosis associated with the presentation includes as above. Admission/Observation Not indicated. Lab Data [facility] Lab Attestation statement: I reviewed the patient's lab results. as above. 08/30/24 06:49 08/30/24 06:49 Labs: Lab Results 08/30/24 Range/Units 06:49 WBC 10.4 (4.8-10.8) X10*3/uL RBC 5.19 (4.60-5.80) X10*6/uL Hgb 14.1 (14.0-18.0) g/dl Hct 41.9 L (42.0-52.0) % MCV 80.7 (80.0-98.0) fL MCH 27.2 (27.0-33.0) pg MCHC 33.7 (31.0-36.0) g/dl RDW 13.5 (11.0-16.0) % Plt Count 392 (160-400) X10*3/uL MPV 9.6 (9.4-12.4) fL Immature Gran % (Auto) 0.5 H (0.0-0.4) % Neut % (Auto) 59.1 (45-73) % Lymph % (Auto) 31.3 (20-40) % [place] % (Auto) 6.7 (2-11) % Eos % (Auto) 2.0 (0-4) % Baso % (Auto) 0.4 (0-2) % Lymph # (Auto) 3.3 (1.2-4.9) X10*3/uL [place] # (Auto) 0.7 (0.1-1.2) X10*3/uL Eos # (Auto) 0.2 (0.0-0.4) X10*3/uL Baso # (Auto) 0.0 (0.0-0.2) X10*3/uL Abs Immat Gran (auto) 0.05 H (0.00-0.03) X10*3/uL Absolute Neuts (auto) 6.2 (2.0-8.3) x10*3/uL Absolute Nucleated RBC 0.000 (0.0-0.012) X10*3/uL Nucleated RBC % (auto) 0.0 (0.0-0.2) /100WBC Sodium 139 (135-145) mmol/L Potassium 3.6 (3.3-5.1) mmol/L Chloride 107 (96-108) mmol/L Carbon Dioxide 23 (22-29) mmol/L Anion Gap 13 (12-20) BUN 12 (9-16) mg/dL Creatinine 0.71 (0.5-1.4) mg/dL Estim Creat Clear Calc 159.9 Estimated GFR > 60 Random Glucose 113 (60-115) mg/dL Calcium 8.4 D (8.4-10.2) mg/dL Total Bilirubin 0.4 (0.0-1.0) mg/dL AST 33 (5-37) U/L ALT 48 H (0-40) U/L Alkaline Phosphatase 87 (39-117) U/L Troponin I High Sens 3.4 (<3.5-35.0) ng/L Total Protein 7.4 (6.5-8.0) g/dL Albumin 4.2 (3.5-5.0) g/dL Influenza Type A (PCR) NEGATIVE (Negative) Influenza Type B (PCR) NEGATIVE (Negative) RSV RNA Qual (PCR) NEGATIVE (Negative) SARS-CoV-2 RNA (RT-PCR) NEGATIVE (Negative) Independent Interpretation I performed an independent interpretation of an: EKG and CT Scan Interpretation: CT head/ brain without bleed or mass EKG showing sinus bradycardia at a rate of 57 beats per minute, QT 452, QTC 439, no acute ischemic changes or ST elevations. Radiology Impression Discussion of test interpretation with radiology: I have reviewed the radiologist's reading. Radiologist Impression: EXAMINATION: CT HEAD WITHOUT CONTRAST CLINICAL INFORMATION: Headache COMPARISON: None available. TECHNIQUE: Contiguous axial imaging was performed from the skull base to vertex without intravenous administration of contrast. This CT examination was performed using dose optimization techniques as appropriate, variously including the following: *Automated exposure control *Adjustment of mA and/or kV according to patient size (this includes techniques or standardized protocols for targeted exams where dose is matched to indication/reason for exam; i.e. extremities or head) *Use of iterative reconstruction technique DLP: 679 mGy-cm FINDINGS: There is no evidence of acute intracranial hemorrhage or territorial infarction. No abnormal mass effect or midline shift is seen. Davis to white matter differentiation is well preserved. No extra-axial fluid collections are identified. The ventricles are normal in size. There is no abnormal attenuation within the brain parenchyma. The osseous structures and soft tissues are normal. The mastoid air cells and visualized portions of the paranasal sinuses are well-aerated. CT/CT head/brain wo IV con IMPRESSION: No acute intracranial pathology. Electronically signed by: Sajan Sierra MD 08/30/2024 08:42 AM [facility] [place] External Record Review External record reviewed: Inpatient record Prescription Management I considered prescription management with: Pain Medication Social Determinants Patient?s care significantly limited by Social Determinants of Health including: Other Social Determinant of Health Critical Care Time Critical Care Time Critical Care Time: No Discharge Plan Discharge Clinical Impression: Headache Patient Disposition: Home, Self-Care Instructions: General Headache (ED) Additional Instructions: Your evaluation did not show evidence of medical conditions requiring emergent intervention at this time, and your head throbbing improved with medication in the ED. Sometimes it is difficult to explain the cause of headache but the negative workup today is reassuring. I want you to take the following 3 medications together every 6 hours as needed for headache, nausea or vomiting. ? Reglan 10 mg Benadryl 50 mg Excedrin migraine After you take these medications, lie down in a dark quiet room and try to fall asleep. ?These medications will make you sleepy, do not drive or work after taking these medications. Please follow up with your primary care physician within two days. If you do not have a PCP, a referral has been provided. Call them to establish care. They will not call you. Return to the Emergency Department if you experience worsening or uncontrolled pain, vision changes, recurrent vomiting, difficulty with normal activities, abnormal behavior, difficulty walking, numbness, weakness, or any other concerning symptoms. Prescriptions: New Benadryl Allergy 50 mg tablet 50 mg PO Q8H PRN (Reason: nausea and vomiting) Qty: 20 0RF metoclopramide HCl [Reglan] 10 mg tablet 10 mg PO Q6H PRN (Reason: nausea and vomiting) Qty: 10 0RF Excedrin Migraine 250-250-65 mg tablet 1 tab PO Q6H PRN (Reason: pain (scale score 4-6)) Qty: 10 0RF No Action dkkbohuafh-ogmognxzryuuq-vpqk [Fioricet] 50-300-40 mg capsule 1 cap PO Q8H PRN (Reason: pain) Qty: 14 0RF amoxicillin-pot clavulanate 875-125 mg tablet 1 tab PO BID Qty: 14 0RF Referrals: [facility] Family [facility] [Provider Group] [facility] Primary Care[facility] [Provider Group] [facility] Primary Care,[facility] [Provider Group] Stand Alone Forms: Work/School Release Interventions: ED Discharge Assessment Last Done: 08/30/24 09:28 Discharge Date/Time: 08/30/24 09:28 Print Language: Portuguese
[2024-08-30 07:13] LABS: Basophils Percent Auto 0.4 % (0-2); Eosinophils Absolute Auto 0.2 X10*3/uL (0.0-0.4); Hematocrit 41.9 % (42.0-52.0); Hemoglobin 14.1 g/dl (14.0-18.0); Imm Gran Abs Auto 0.05 X10*3/uL (0.00-0.03); Imm Gran Pct Auto 0.5 % (0.0-0.4); Lymphocytes Absolute Auto 3.3 X10*3/uL (1.2-4.9); Lymphocytes Percent Auto 31.3 % (20-40); Mean Corpuscular HGB Conc 33.7 g/dl (31.0-36.0); Mean Corpuscular Hemoglobin 27.2 pg (27.0-33.0); Mean Corpuscular Volume 80.7 fL (80.0-98.0); Mean Platelet Volume 9.6 fL (9.4-12.4); Monocytes Absolute Auto 0.7 X10*3/uL (0.1-1.2); Monocytes Percent Auto 6.7 % (2-11); Neutrophils Absolute Auto 6.2 x10*3/uL (2.0-8.3); Neutrophils Percent Auto 59.1 % (45-73); Platelet Count 392 X10*3/uL (160-400); Red Blood Count 5.19 X10*6/uL (4.60-5.80); Red Cell Distribution Width 13.5 % (11.0-16.0); White Blood Count 10.4 X10*3/uL (4.8-10.8)
--- NOTE | 2024-08-30 07:22 | PC.NURSE ---
Patient arrives from triage/waiting room. During attempted IV insertion in left AC by this RN, pt suddenly felt clammy and stated I think I'm going to pass out , and then laid down in the stretcher safely. No fall or injury. IV access established in right AC by MARQUEZ Stanley. Labs were drawn and sent for analysis, awaiting results. EKG obtained and reviewed by Dr. Ballesteros. Pt is alert & oriented, calm/cooperative. RN to RN report given to Yolande Kinsey RN at change of shift.
[2024-08-30 07:24] LABS: Alanine Aminotransferase 48 U/L (0-40); Albumin Level 4.2 g/dL (3.5-5.0); Alkaline Phosphatase 87 U/L (39-117); Anion Gap 13 (12-20); Aspartate Amino Transferase 33 U/L (5-37); Bilirubin Total 0.4 mg/dL (0.0-1.0); Blood Urea Nitrogen 12 mg/dL (9-16); Calcium 8.4 mg/dL (8.4-10.2); Carbon Dioxide 23 mmol/L (22-29); Chloride 107 mmol/L (96-108); Creatinine Clr Calc Pharmacy 159.9; Estimated Glomerular Filt Rate > 60; Glucose Random 113 mg/dL (60-115); Potassium 3.6 mmol/L (3.3-5.1); Sodium 139 mmol/L (135-145); Total Protein 7.4 g/dL (6.5-8.0)
[2024-08-30 07:29] VITALS: BP 118/84; BP 132/87; BP 134/95; PULSE 61; PULSE 64; PULSE 69
[2024-08-30 07:41] LABS: Influenza A PCR NEGATIVE (Negative); Influenza B PCR NEGATIVE (Negative); Resp Syncy Virus RNA Qual PCR NEGATIVE (Negative); SARS COV2 PCR INHOUSE NEGATIVE (Negative)
[2024-08-30 07:48] LABS: Troponin-I High Sensitivity 3.4 ng/L (<3.5-35.0)
[2024-08-30] MEDS: diphenhydrAMINE HCL 50 MG/ML VIAL 25 MG IVPUSH (08:02)
[2024-08-30] MEDS: Metoclopramide HCl 10 MG/2 ML VIAL IVPUSH (08:02)
[2024-08-30] MEDS: Ketorolac Tromethamine 15 MG/ML VIAL IVPUSH (08:03)
[2024-08-30 09:27] VITALS: BP 115/73; PULSE 63; RESP 18; O2SAT 98
[2024-08-30 09:28] VITALS: BP 115/73; PULSE 63; RESP 18; TEMP -17.7; TEMP 0; O2SAT 98
== END 2024-08-30 09:28 | disposition home or self-care (01) ==
PROVIDERS: Physician Assistant Medical; Emergency Provider Emergency Medicine
DX: R51.9 Headache, unspecified (principal); R00.1 Bradycardia, unspecified; Z03.818 Encounter for observation for suspected exposure to other biological agents ruled out; Z79.899 Other long term (current) drug therapy
CPT/HCPCS: 0241U; 70450; 80053; 84484; 85025; 93005; 96374; 96375; 99284; J1200; J1885; J2765

== ENCOUNTER → 2024-08-30 06:52 | Outpatient (BNV) | payer SELFPAY | PROVIDERS: Emergency Provider Emergency Medicine; Visit Provider Internal Medicine Cardiovascular Disease | DX: R00.0 Tachycardia, unspecified (principal) | CPT/HCPCS: 93010 ==

== ENCOUNTER 2025-06-16 03:03 | Emergency (ER) | payer OTHER, SELFPAY ==
--- NOTE | 2025-06-16 | ECG_ITS ---
Test Reason : cp Blood Pressure : */* mmHG Vent. Rate : 63 BPM Atrial Rate : 63 BPM P-R Int : 168 ms QRS Dur : 86 ms QT Int : 394 ms P-R-T Axes : 49 75 44 degrees QTcB Int : 403 ms Normal sinus rhythm Normal ECG When compared with ECG of 30-Aug-2024 06:52, No significant change was found Referred By: Generic ED Physician Electronically Signed By: Taran Johnston
--- NOTE | ~2025-06-16 | XR_ITS ---
CLINICAL HISTORY: chest pain 2 view chest x-ray Comparison: None provided Findings: The lungs are clear. Normal size heart. No acute fracture. IMPRESSION: No acute cardiopulmonary abnormality. This document has been electronically signed by: Alice Key on 06/16/2025 04:59:07
[2025-06-16 03:09] VITALS: BP 126/72; PULSE 75; RESP 18; TEMP 36.3; O2SAT 97; BMI 38.2
[2025-06-16 03:37] LABS: Hematocrit 39.7 % (42.0-52.0); Hemoglobin 13.3 g/dl (14.0-18.0); Imm Gran Abs Auto 0.05 X10*3/uL (0.00-0.03); Imm Gran Pct Auto 0.5 % (0.0-0.4); Lymphocytes Absolute Auto 2.9 X10*3/uL (1.2-4.9); MANUAL DIFF FLAG NO; Mean Corpuscular HGB Conc 33.5 g/dl (31.0-36.0); Mean Corpuscular Hemoglobin 26.5 pg (27.0-33.0); Mean Corpuscular Volume 79.2 fL (80.0-98.0); NRBC Abs Auto 0.000 X10*3/uL (0.0-0.012); NRBC Pct Auto 0.0 /100WBC (0.0-0.2); Platelet Count 328 X10*3/uL (160-400); Red Blood Count 5.01 X10*6/uL (4.60-5.80); White Blood Count 10.6 X10*3/uL (4.8-10.8)
[2025-06-16 03:43] LABS: INTERNATIONAL NORM RATIO 1.0 (0.9-1.1); Prothrombin Time 11.9 SEC (10.9-12.4)
[2025-06-16 03:54] LABS: Alanine Aminotransferase 32 U/L (0-40); Albumin Level 4.7 g/dL (3.5-5.0); Alkaline Phosphatase 80 U/L (39-117); Anion Gap 14 (12-20); Aspartate Amino Transferase 27 U/L (5-37); Blood Urea Nitrogen 18 mg/dL (9-16); Calcium 8.8 mg/dL (8.4-10.2); Carbon Dioxide 25 mmol/L (22-29); Chloride 108 mmol/L (96-108); Creatinine Clr Calc Pharmacy 135.4; Estimated Glomerular Filt Rate > 60; Potassium 3.9 mmol/L (3.3-5.1); Sodium 143 mmol/L (135-145); Total Protein 7.8 g/dL (6.5-8.0)
[2025-06-16 04:00] LABS: B Type Natriuretic Peptide < 10 pg/mL (<100)
[2025-06-16 04:06] LABS: Troponin-I High Sensitivity < 2.7 ng/L (<3.5-35.0)
--- NOTE | 2025-06-16 04:23 | ED_ITS ---
HPI - Chest Pain General Chief Complaint: Chest Pain Stated Complaint: Chest Pain Time Seen by Provider: 06/16/25 04:23 Source: patient Limitations: no limitations History of Present Illness ED Provider: Jessie Martinez PA-C HPI narrative: 39-year-old male with a history of hypertension hyperlipidemia presents with left anterior chest pain. Patient states he was being ?intimate with the his ?, when he developed left anterior chest discomfort. Pain worse with palpation of chest wall. Denies recent cough or cold symptoms, shortness of breath or fever. No associated diaphoresis nausea vomiting. Related Data Previous Rx's ?Medication ?Instructions ?Recorded hmaqygkpzi-bcmuuueujotwd-rxadvbie 1 cap PO Q8H PRN nicolás n #14 caps 08/27/22 50 mg-300 mg-40 mg capsule (Fioricet) amoxicillin 875 mg-potassium 1 tab PO BID #14 tabs clavulanate 125 mg tablet rfzbvmy-nyqhhrximvxyu-egyciuzy 250 1 tab PO Q6H PRN pa in (scale score 08/30/24 mg-250 mg-65 mg tablet (Excedrin 4-6) #10 tabs Migraine) diphenhydramine HCl 50 mg tablet 50 mg PO Q8H PRN naus ea and 08/30/24 (Benadryl Allergy) vomiting #20 tabs metoclopramide HCl 10 mg tablet 10 mg PO Q6H PRN nause a and 08/30/24 (Reglan) vomiting #10 tabs Allergies Allergy/AdvReac Type Severity Reaction Status Date / Time No Known Allergies Allergy Verified 06/16/25 03:15 Review of Systems 2 Review of Systems: Yes all other systems are reviewed and are negative Constitutional: Constitutional: Denies fatigue and Denies fever(s) Cardiovascular: Cardiovascular: Reports chest pain and Denies dyspnea Respiratory: Respiratory: Denies dyspnea Gastrointestinal: Gastrointestinal: Denies abdominal pain, Denies nausea and Denies vomiting Endocrine: Endocrine: Denies fatigue PMF Past Medical History Attestation statement: The following information was validated with the patient. Social History Social History Smoked in Last 30 Days: No Use of substances other than those prescribed or required for medical reasons: No Advance Directives: No Advance Directives Information Provided: Yes Physical Exam 2 Vital Signs: Vital Signs: Last Vital Signs Temp 97.6 F 06/16/25 05:42 Pulse 65 06/16/25 05:42 Resp 14 06/16/25 05:42 BP 114/62 06/16/25 05:42 Pulse Ox 98 06/16/25 05:42 O2 Del Method Room Air 06/16/25 05:42 BMI result Body Mass Index 38.2 Const: Other: Alert Orientation/consciousness: patient oriented x3 Chest: Other: Pain reproducible with palpation of left anterior chest wall Resp: Effort & Inspection: normal respiratory effort Cardio: Other: Normal peripheral perfusion Skin: Other: Warm dry no rash Neuro: General: patient oriented x3, gait normal, no focal motor deficits and CN's II-XI intact bilaterally Medical Decision Making Medical Decision Making [facility] Narrative: 39-year-old male with a history of hypertension hyperlipidemia presents with left anterior chest pain. Patient states he was being ?intimate with the his ?, when he developed left anterior chest discomfort. Pain worse with palpation of chest wall. Denies recent cough or cold symptoms, shortness of breath or fever. No associated diaphoresis nausea vomiting. Problem: Hypertension, hyperlipidemia History: Per patient I have considered the following differential diagnoses: Chest wall strain, costochondritis, ACS, anxiety , viral syndrome, pneumonia Plan: ACS was considered, the patient does have risk factors for coronary artery disease, screening labs including cardiac enzymes EKG and chest x-ray were obtained. In reality, the patient's exam was consistent with chest wall strain, and he does have a mechanism to suggest MSK strain. He has not had any cough or cold symptoms or fevers to suggest costochondritis, or pneumonia. I have independently reviewed the following tests: Labs: No leukocytosis, not anemic, no electrolyte abnormality, troponin less than 2.7 BNP less than 10 EKG: Normal sinus rhythm, rate of 63, no ischemic changes no ectopy QTC 394 Chest x-ray:Findings: The lungs are clear. Normal size heart. No acute fracture. IMPRESSION: No acute cardiopulmonary abnormality. Differential Diagnosis Differential Diagnoses: The differential diagnosis associated with the presentation includes per [facility] Admission/Observation Consideration of admission/observation: Escalation of care including admission/observation considered Not applicable Lab Data [facility] Lab Attestation statement: I reviewed the patient's lab results. 06/16/25 03:30 06/16/25 03:30 Labs: Lab Results 06/16/25 Range/Units 03:30 WBC 10.6 (4.8-10.8) X10*3/uL RBC 5.01 (4.60-5.80) X10*6/uL Hgb 13.3 L (14.0-18.0) g/dl Hct 39.7 L (42.0-52.0) % MCV 79.2 L (80.0-98.0) fL MCH 26.5 L (27.0-33.0) pg MCHC 33.5 (31.0-36.0) g/dl RDW 13.4 (11.0-16.0) % Plt Count 328 (160-400) X10*3/uL MPV 9.3 L (9.4-12.4) fL Immature Gran % (Auto) 0.5 H (0.0-0.4) % Neut % (Auto) 60.0 (45-73) % Lymph % (Auto) 27.4 (20-40) % [place] % (Auto) 9.7 (2-11) % Eos % (Auto) 2.1 (0-4) % Baso % (Auto) 0.3 (0-2) % Lymph # (Auto) 2.9 (1.2-4.9) X10*3/uL [place] # (Auto) 1.0 (0.1-1.2) X10*3/uL Eos # (Auto) 0.2 (0.0-0.4) X10*3/uL Baso # (Auto) 0.0 (0.0-0.2) X10*3/uL Abs Immat Gran (auto) 0.05 H (0.00-0.03) X10*3/uL Absolute Neuts (auto) 6.3 (2.0-8.3) x10*3/uL Absolute Nucleated RBC 0.000 (0.0-0.012) X10*3/uL Nucleated RBC % (auto) 0.0 (0.0-0.2) /100WBC PT 11.9 (10.9-12.4) SEC INR 1.0 (0.9-1.1) Sodium 143 (135-145) mmol/L Potassium 3.9 (3.3-5.1) mmol/L Chloride 108 (96-108) mmol/L Carbon Dioxide 25 (22-29) mmol/L Anion Gap 14 (12-20) BUN 18 H (9-16) mg/dL Creatinine 0.83 (0.5-1.4) mg/dL Estim Creat Clear Calc 135.4 Estimated GFR > 60 Random Glucose 97 (60-115) mg/dL Calcium 8.8 (8.4-10.2) mg/dL Total Bilirubin 0.2 (0.0-1.0) mg/dL AST 27 (5-37) U/L ALT 32 (0-40) U/L Alkaline Phosphatase 80 (39-117) U/L Troponin I High Sens < 2.7 (<3.5-35.0) ng/L B-Natriuretic Peptide < 10 (<100) pg/mL Total Protein 7.8 (6.5-8.0) g/dL Albumin 4.7 (3.5-5.0) g/dL Independent Interpretation I performed an independent interpretation of an: EKG Interpretation: See MDM Radiology Impression Discussion of test interpretation with radiology: I have reviewed the radiologist's reading. Discharge Plan Discharge Clinical Impression: Chest wall pain Patient Disposition: Home, Self-Care Instructions: Chest Wall Pain (ED) Additional Instructions: Your exam is consistent with chest wall pain. See home care instructions. All of your screening labs including a cardiac enzymes were normal, there were no concerning changes on the EKG in the chest x-ray is clear. Follow up with primary care as needed. Prescriptions: No Action ovebnwdaqt-hkhyllfzxjblz-cbzu [Fioricet] 50-300-40 mg capsule 1 cap PO Q8H PRN (Reason: pain) Qty: 14 0RF amoxicillin-pot clavulanate 875-125 mg tablet 1 tab PO BID Qty: 14 0RF Benadryl Allergy 50 mg tablet 50 mg PO Q8H PRN (Reason: nausea and vomiting) Qty: 20 0RF metoclopramide HCl [Reglan] 10 mg tablet 10 mg PO Q6H PRN (Reason: nausea and vomiting) Qty: 10 0RF Excedrin Migraine 250-250-65 mg tablet 1 tab PO Q6H PRN (Reason: pain (scale score 4-6)) Qty: 10 0RF Stand Alone Forms: Work/School Release Interventions: ED Discharge Assessment Last Done: 06/16/25 05:42 Discharge Date/Time: 06/16/25 05:44 Print Language: Kiswahili
--- NOTE | 2025-06-16 04:56 | PC.NURSE ---
visitor/ride of pt stated she will be leaving in order to care for their baby at home, phone number given Dayna, to call when pt is D/C
[2025-06-16 05:03] VITALS: BP 114/62; PULSE 65; RESP 14; TEMP 36.4; O2SAT 98
[2025-06-16 05:42] VITALS: BP 114/62; PULSE 65; RESP 14; TEMP 36.4; O2SAT 98
== END 2025-06-16 05:44 | disposition home or self-care (01) ==
PROVIDERS: Emergency Provider Emergency Medicine
DX: R07.89 Other chest pain (principal); R06.00 Dyspnea, unspecified; I10 Essential (primary) hypertension
CPT/HCPCS: 36415; 71046; 80053; 83880; 84484; 85025; 85610; 93005; 99283; 99285

== ENCOUNTER → 2025-06-16 03:08 | Outpatient (BNV) | payer OTHER, SELFPAY | PROVIDERS: Emergency Provider Emergency Medicine; Visit Provider Internal Medicine Cardiovascular Disease | DX: R07.89 Other chest pain (principal) | CPT/HCPCS: 93010 ==

== ENCOUNTER → 2025-06-16 03:20 | Outpatient (BNV) | payer MEDICAID, SELFPAY | PROVIDERS: Emergency Provider Emergency Medicine; Visit Provider Radiology Vascular & Interventional Radiology | DX: R07.9 Chest pain, unspecified (principal) | CPT/HCPCS: 71046 ==

== ENCOUNTER 2025-06-28 06:58 | Emergency (ER) | payer OTHER, SELFPAY ==
--- NOTE | 2025-06-28 | ECG_ITS ---
Test Reason : CHEST PAIN Blood Pressure : */* mmHG Vent. Rate : 68 BPM Atrial Rate : 68 BPM P-R Int : 164 ms QRS Dur : 84 ms QT Int : 394 ms P-R-T Axes : 62 71 41 degrees QTcB Int : 418 ms Normal sinus rhythm Normal ECG When compared with ECG of 16-Jun-2025 03:08, No significant change was found Referred By: Generic ED Physician Electronically Signed By: WILLIS ZURITA
--- NOTE | ~2025-06-28 | XR_ITS ---
EXAMINATION: XR CHEST 2 VIEWS HISTORY: cp COMPARISON: Comparison is made with the prior examination dated 06/16/2025. FINDINGS: PA and lateral views of the chest are submitted. The lungs are expanded and clear. There is no pleural effusion, pneumothorax, or pulmonary vascular congestion. The heart is normal in size. The bones are intact. XR/XR chest 2V IMPRESSION: No acute cardiopulmonary abnormality. Electronically signed by: Carmelo Marcial MD 06/28/2025 08:02 AM EDT
[2025-06-28 07:05] VITALS: BP 144/83; PULSE 67; RESP 16; TEMP 36.2; O2SAT 97; BMI 39.2
--- NOTE | 2025-06-28 07:21 | ED_ITS ---
HPI - Chest Pain General Chief Complaint: Chest Pain Stated Complaint: Chest pain Time Seen by Provider: 06/28/25 07:13 Source: patient Mode of arrival: ambulatory Limitations: no limitations History of Present Illness ED Provider: KVNG GORDON PA-C HPI narrative: 39 yo M with PMH of HTN and HLD presents with chest pain that woke him from his sleep around 0130 this morning. Reports pain to left anterior chest. Describes pain as throbbing/pressure and sensation of needles . Pain radiates to left neck, towards his left ear and down left arm. Pain 5/10 per patient and has been relatively constant. He did not try any tylenol/motrin [employer]. Reports history of similar with negative work up. Admits to recent life stressors. Patient reports compliance with home meds however was unable to take these this morning prior to arrival. Denies tobacco use. Denies h/o lung diseases. No n/v, headache, fevers or chills, cough, hemoptysis, LE pain/swelling. No sick contacts. Denies recent travel/long car rides. Related Data Previous Rx's ?Medication ?Instructions ?Recorded bfdjvgdzim-rxczzjrvpqpdg-jfqyyeah 1 cap PO Q8H PRN nicolás n #14 caps 08/27/22 50 mg-300 mg-40 mg capsule (Fioricet) amoxicillin 875 mg-potassium 1 tab PO BID #14 tabs clavulanate 125 mg tablet vibwpmn-gkslrlxyggkxh-roeobfgf 250 1 tab PO Q6H PRN pa in (scale score 08/30/24 mg-250 mg-65 mg tablet (Excedrin 4-6) #10 tabs Migraine) diphenhydramine HCl 50 mg tablet 50 mg PO Q8H PRN naus ea and 08/30/24 (Benadryl Allergy) vomiting #20 tabs metoclopramide HCl 10 mg tablet 10 mg PO Q6H PRN nause a and 08/30/24 (Reglan) vomiting #10 tabs Allergies Allergy/AdvReac Type Severity Reaction Status Date / Time No Known Allergies Allergy Verified 06/28/25 07:09 Review of Systems 2 Review of Systems: Yes all other systems are reviewed and are negative PMFSH Past Medical History Attestation statement: The following information was validated with the patient. Source: old records reviewed and nursing notes reviewed Social History Social History Advance Directives: No Advance Directives Information Provided: No Physical Exam 2 Vital Signs: Vital Signs: Last Vital Signs Temp 97.9 F 06/28/25 10:25 Pulse 65 06/28/25 10:25 Resp 16 06/28/25 10:25 BP 114/78 06/28/25 10:25 Pulse Ox 97 06/28/25 10:25 O2 Del Method Room Air 06/28/25 10:25 BMI result Body Mass Index 39.2 hypertensive, vitals are otherwise wnl General: Well appearing, in no acute distress. Skin: Warm, dry, intact. No rashes or lesions. Head: Normocephalic, atraumatic. EENT: Hearing is intact b/l. Conjunctiva clear. Sclera is anicteric. PERRLA. EOM intact. Moist mucous membranes.? Neck: Supple without LAD Cardiac: Chest wall symmetric. RRR. Reproducible tenderness to palpation along left anterior chest wall primarily over left pectoralis muscle. Lungs: Normal respiratory effort without accessory muscle use. CTA bilaterally. No rales, rhonchi, or wheezes.? Abdomen: Soft, non-tender, non-distended. No rebound tenderness or guarding. Positive BS x4. Ext: +no pitting edema, no calf tenderness b/l Neuro: AOx3. Normal speech. Ambulating with steady gait Medications Administered Discontinued Medications Generic Name Dose Route Start Last Admin Trade Name Freq PRN Reason Stop Dose Admin Ketorolac Tromethamine 30 mg 06/28/25 07:28 06/28/25 07:38 Ketorolac Tromethamine 30 Mg/Ml Vial IM 06/28/25 07:29 30 mg ONCE ONE Administration Medical Decision Making Medical Decision Making MDM Narrative: 39 yo M with PMH of HTN and HLD presents with chest pain that woke him from his sleep around 0130 this morning. Patient hypertensive on arrival, not hypoxic or tachycardic. He is well-appearing and in no acute distress. Not diaphoretic. RRR, lungs clear, no respiratory distress. no calf tenderness or pitting edema. This patient presents with chest pain, with symptoms suggestive of noncardiac chest pain.? History without high risk features (not substernal, no exertional component, not relieved with rest).? Minimal CAD risk factors (including age). Exam without evidence of volume overload. EKG without signs of active ischemia. HEART score: 1. Given the timing of pain to ED presentation, plan to send delta troponin to evaluate for NSTEMI. Differential diagnosis also includes anemia, electrolyte abnormality, costochondritis, msk pain, pneumonia, pleurisy, anxiety. Presentation not consistent with acute PE (PERC 0), pneumothorax, thoracic aortic dissection, cardiac effusion or tamponade, myocarditis, pericarditis. Plan: labs, troponin, EKG, CXR, pain control, reassessment Differential Diagnosis Differential Diagnoses: The differential diagnosis associated with the presentation includes as above. Admission/Observation not indicated. Lab Data MDM Lab Attestation statement: I reviewed the patient's lab results. as above. 06/28/25 07:31 06/28/25 07:31 Labs: Lab Results 06/28/25 06/28/25 Range/Units 07:31 09:32 WBC 8.4 (4.8-10.8) X10*3/uL RBC 5.09 (4.60-5.80) X10*6/uL Hgb 13.6 L (14.0-18.0) g/dl Hct 41.4 L (42.0-52.0) % MCV 81.3 (80.0-98.0) fL MCH 26.7 L (27.0-33.0) pg MCHC 32.9 (31.0-36.0) g/dl RDW 13.5 (11.0-16.0) % Plt Count 310 (160-400) X10*3/uL MPV 9.4 (9.4-12.4) fL Immature Gran % (Auto) 1.0 H (0.0-0.4) % Neut % (Auto) 52.2 (45-73) % Lymph % (Auto) 33.7 (20-40) % [place] % (Auto) 9.9 (2-11) % Eos % (Auto) 2.7 (0-4) % Baso % (Auto) 0.5 (0-2) % Lymph # (Auto) 2.8 (1.2-4.9) X10*3/uL [place] # (Auto) 0.8 (0.1-1.2) X10*3/uL Eos # (Auto) 0.2 (0.0-0.4) X10*3/uL Baso # (Auto) 0.0 (0.0-0.2) X10*3/uL Abs Immat Gran (auto) 0.08 H (0.00-0.03) X10*3/uL Absolute Neuts (auto) 4.4 (2.0-8.3) x10*3/uL Absolute Nucleated RBC 0.000 (0.0-0.012) X10*3/uL Nucleated RBC % (auto) 0.0 (0.0-0.2) /100WBC Sodium 142 (135-145) mmol/L Potassium 3.9 (3.3-5.1) mmol/L Chloride 109 H (96-108) mmol/L Carbon Dioxide 25 (22-29) mmol/L Anion Gap 12 (12-20) BUN 12 (9-16) mg/dL Creatinine 0.70 (0.5-1.4) mg/dL Estim Creat Clear Calc 162.7 Estimated GFR > 60 Random Glucose 104 (60-115) mg/dL Calcium 8.5 (8.4-10.2) mg/dL Total Bilirubin 0.2 (0.0-1.0) mg/dL AST 26 (5-37) U/L ALT 37 (0-40) U/L Alkaline Phosphatase 78 (39-117) U/L Troponin I High Sens < 2.7 < 2.7 (<3.5-35.0) ng/L Total Protein 7.2 (6.5-8.0) g/dL Albumin 4.3 (3.5-5.0) g/dL Independent Interpretation I performed an independent interpretation of an: EKG and Plain X-Ray Interpretation: Chest x-ray without infiltrate or consolidation EKG showing normal sinus rhythm, acute ischemic changes or ST elevations Radiology Impression Discussion of test interpretation with radiology: I have reviewed the radiologist's reading. Radiologist Impression: Procedure(s): XR chest 2V Accession Number(s): [id number] cc: Physician,None ; Diaz Negron DO~ Reason for Exam: cp EXAMINATION: XR CHEST 2 VIEWS HISTORY: cp COMPARISON: Comparison is made with the prior examination dated 06/16/2025. FINDINGS: PA and lateral views of the chest are submitted. The lungs are expanded and clear. There is no pleural effusion, pneumothorax, or pulmonary vascular congestion. The heart is normal in size. The bones are intact. XR/XR chest 2V IMPRESSION: No acute cardiopulmonary abnormality. Electronically signed by: Carmelo Marcial MD 06/28/2025 08:02 AM EDT RP External Record Review External record reviewed: Inpatient record Prescription Management I considered prescription management with: Pain Medication Social Determinants Patient?s care significantly limited by Social Determinants of Health including: Other Social Determinant of Health Critical Care Time Critical Care Time Critical Care Time: No Discharge Plan Discharge Clinical Impression: Atypical chest pain Patient Disposition: Home, Self-Care Instructions: Noncardiac Chest Pain (ED), Chest Wall Pain (ED) Additional Instructions: You were evaluated in the Emergency Department today for chest pain. Your evaluation has shown no signs of medical conditions requiring emergent intervention at this time. It is reassuring that your discomfort improved with Toradol today. I recommend continuing Motrin at home over the next few days to help with the discomfort. I recommend that you follow up with your primary care provider or your hematology technician as soon as possible for further testing as an outpatient. If you do not have one, a referral has been provided. Please call them to make an appointment, they will not call you. Return to the Emergency Department if you experience worsening or uncontrolled chest pain, shortness of breath, lightheadedness, feeling faint, nausea, vomiting, or any other concerning symptoms. Prescriptions: No Action hqpsqibzzb-jsgrwyvooaxfl-afck [Fioricet] 50-300-40 mg capsule 1 cap PO Q8H PRN (Reason: pain) Qty: 14 0RF amoxicillin-pot clavulanate 875-125 mg tablet 1 tab PO BID Qty: 14 0RF Benadryl Allergy 50 mg tablet 50 mg PO Q8H PRN (Reason: nausea and vomiting) Qty: 20 0RF metoclopramide HCl [Reglan] 10 mg tablet 10 mg PO Q6H PRN (Reason: nausea and vomiting) Qty: 10 0RF Excedrin Migraine 250-250-65 mg tablet 1 tab PO Q6H PRN (Reason: pain (scale score 4-6)) Qty: 10 0RF Referrals: Physician,None [Primary Care Provider, Medical] Interventions: ED Discharge Assessment Last Done: 06/28/25 10:25 Print Language: Malaysian
[2025-06-28 07:40] LABS: MANUAL DIFF FLAG NO
[2025-06-28 07:42] LABS: Hematocrit 41.4 % (42.0-52.0); Hemoglobin 13.6 g/dl (14.0-18.0); Imm Gran Abs Auto 0.08 X10*3/uL (0.00-0.03); Imm Gran Pct Auto 1.0 % (0.0-0.4); Lymphocytes Absolute Auto 2.8 X10*3/uL (1.2-4.9); Mean Corpuscular HGB Conc 32.9 g/dl (31.0-36.0); Mean Corpuscular Hemoglobin 26.7 pg (27.0-33.0); Mean Corpuscular Volume 81.3 fL (80.0-98.0); NRBC Abs Auto 0.000 X10*3/uL (0.0-0.012); NRBC Pct Auto 0.0 /100WBC (0.0-0.2); Platelet Count 310 X10*3/uL (160-400); Red Blood Count 5.09 X10*6/uL (4.60-5.80); White Blood Count 8.4 X10*3/uL (4.8-10.8)
[2025-06-28 07:57] LABS: Alanine Aminotransferase 37 U/L (0-40); Albumin Level 4.3 g/dL (3.5-5.0); Alkaline Phosphatase 78 U/L (39-117); Anion Gap 12 (12-20); Aspartate Amino Transferase 26 U/L (5-37); Blood Urea Nitrogen 12 mg/dL (9-16); Calcium 8.5 mg/dL (8.4-10.2); Carbon Dioxide 25 mmol/L (22-29); Chloride 109 mmol/L (96-108); Creatinine Clr Calc Pharmacy 162.7; Estimated Glomerular Filt Rate > 60; Potassium 3.9 mmol/L (3.3-5.1); Sodium 142 mmol/L (135-145); Total Protein 7.2 g/dL (6.5-8.0)
[2025-06-28 08:06] LABS: Troponin-I High Sensitivity < 2.7 ng/L (<3.5-35.0)
[2025-06-28 09:30] VITALS: BP 114/78; PULSE 65; RESP 16; O2SAT 97
[2025-06-28 09:56] LABS: Troponin-I High Sensitivity < 2.7 ng/L (<3.5-35.0)
[2025-06-28 10:25] VITALS: BP 114/78; PULSE 65; RESP 16; TEMP 36.6; O2SAT 97
== END 2025-06-28 10:50 | disposition home or self-care (01) ==
PROVIDERS: Physician Assistant Medical; Emergency Provider Emergency Medicine
DX: R07.89 Other chest pain (principal); I10 Essential (primary) hypertension; Z79.899 Other long term (current) drug therapy
CPT/HCPCS: 36415; 71046; 80053; 84484; 85025; 93005; 96372; 99284; 99285; J1885

== ENCOUNTER → 2025-06-28 07:02 | Outpatient (BNV) | payer OTHER, SELFPAY | PROVIDERS: Emergency Provider Emergency Medicine; Visit Provider Internal Medicine | DX: R07.9 Chest pain, unspecified (principal) | CPT/HCPCS: 93010 ==

== ENCOUNTER → 2025-06-28 07:49 | Outpatient (BNV) | payer OTHER, SELFPAY | PROVIDERS: Emergency Provider Emergency Medicine; Visit Provider Radiology Diagnostic Radiology | DX: R07.89 Other chest pain (principal) | CPT/HCPCS: 71046 ==

== ENCOUNTER 2025-08-28 05:18 | Emergency (ER) | payer OTHER, SELFPAY ==
--- NOTE | 2025-08-28 05:25 | ECG_ITS ---
Test Reason : CP Blood Pressure : */* mmHG Vent. Rate : 81 BPM Atrial Rate : 81 BPM P-R Int : 166 ms QRS Dur : 88 ms QT Int : 376 ms P-R-T Axes : 58 77 33 degrees QTcB Int : 436 ms Normal sinus rhythm Normal ECG When compared with ECG of 28-Jun-2025 07:02, No significant change was found Referred By: Citlaly Ballesteros Electronically Signed By: LUZ GONZALEZ MD
[2025-08-28 05:26] VITALS: BP 118/92; BP 119/87; PULSE 86; PULSE 87; RESP 19; TEMP 36.4; O2SAT 97; BMI 41.0
[2025-08-28 05:30] VITALS: BP 131/86; PULSE 78; RESP 12; O2SAT 96
--- NOTE | 2025-08-28 05:34 | ED.CHESTPAIN ---
HPI - Chest Pain General Chief Complaint: Chest Pain Stated Complaint: chest pain Time Seen by Provider: 08/28/25 05:23 Source: patient Mode of arrival: ambulatory Limitations: no limitations History of Present Illness ED Provider: Dr. Citlaly Ballesteros HPI narrative: patient comes to the emergency room complaining of nausea vomiting and diarrhea for couple of days. Patient states that he started feeling lightheaded after having so much diarrhea. Patient states that he has had a proximally 10 bowel movements with diarrhea per day. Patient has not taking any antidiarrheal medications but states that he has been trying to keep up with fluids with electrolytes. Patient states that he has been having some chest pain but he has a these episodes before. Denies any syncopal episodes. Related Data Previous Rx's ?Medication ?Instructions ?Recorded xxeideewgq-cmcaaysujnhqw-mtslabuq 1 cap PO Q8H PRN pain #14 caps 08/27/22 50 mg-300 mg-40 mg capsule (Fioricet) amoxicillin 875 mg-potassium 1 tab PO BID #14 tabs 05/08/24 clavulanate 125 mg tablet vqdquvu-trgqprbsnhkbj-wfuwmtvy 250 1 tab PO Q6H PRN pain (scale score 08/30/24 mg-250 mg-65 mg tablet (Excedrin 4-6) #10 tabs Migraine) diphenhydramine HCl 50 mg tablet 50 mg PO Q8H PRN nausea and 08/30/24 (Benadryl Allergy) vomiting #20 tabs metoclopramide HCl 10 mg tablet 10 mg PO Q6H PRN nausea and 08/30/24 (Reglan) vomiting #10 tabs loperamide 2 mg tablet 2 mg PO Q6H PRN loose stool #14 08/28/25 tabs Allergies Allergy/AdvReac Type Severity Reaction Status Date / Time No Known Allergies Allergy Verified 08/28/25 05:28 Review of Systems Review of Systems: Constitutional : No Weight loss, No Fever, No Chills, No Night Sweats, No Fatigue, No Malaise ENT/Mouth : No Hearing loss, No Ear Pain, No Nasal Congestion, No Sinus Pain, No Hoarseness, No sore throat, No Rhinorrhea, No Swallowing Difficulty Eyes: No Eye Pain, No Swelling, No Redness, No Foreign Body, No Discharge, No Vision Changes Cardiovascular : complaining of chest pain, nonradiating, No SOB, No Dyspnea on Exertion, No Orthopnea, No Edema, No Palpitations Respiratory : No Cough, No Sputum, No Wheezing, No Smoke Exposure, No Dyspnea Gastrointestinal : complaining of nausea vomiting and diarrhea,No Constipation, No abdominal Pain, No Hematochezia, No Melena Genitourinary : no irregular bleeding, No Dysuria, No Urinary Frequency, No Hematuria, No Urinary Incontinence, No Urgency, No Flank Pain, No Urinary Flow Changes, No Hesitancy Musculoskeletal : No joint pain, No Myalgias, No Joint Swelling Skin : No Skin Lesions, No rash Neuro : No Weakness, No Numbness, No Paresthesias, No Loss of Consciousness, No Dizziness, No Headache Psych : No Anxiety/Panic, No Depression, No SI/HI/AH/VH, No Social Issues, Heme/Lymph: No Bruising, No Bleeding,No Lymphadenopathy Endocrine : No Polyuria, No Polydipsia, No Temperature Intolerance PMFSH Past Medical History Medical History Hypertension Social History Social History Smoked in Last 30 Days: No Use of substances other than those prescribed or required for medical reasons: No Advance Directives: No Advance Directives Information Provided: Yes Physical Exam Exam: Exam: Appearance: Alert. Oriented X3. No acute distress. well-appearing Eyes: Pupils equal, round and reactive to light. ENT: Pharynx normal. Neck: Normal inspection. Neck supple. No lymph nodes noted. No crepitus CVS: Normal heart rate and rhythm. Pulses normal. Normal S1 and S2 Respiratory: No respiratory distress. Breath sounds normal. No Wheezing. No rales Abdomen: Soft and nontender. No rigidity. No distention. Skin: Skin warm and dry. Normal skin color. Normal skin turgor. Extremities: No lower extremity edema. No Lacerations. No Rash Neuro: Oriented X 3. No motor deficit. No sensory deficit. Moving all extremities. No slurred speech. CN 2 through 12 grossly intact Psych: calm, cooperative, normal affect Vital Signs: Vital Signs: Last Vital Signs Temp 97.5 F 08/28/25 05:26 Pulse 78 08/28/25 05:30 Resp 12 08/28/25 05:30 BP 131/86 08/28/25 05:30 Pulse Ox 96 08/28/25 05:30 O2 Del Method Room Air 08/28/25 05:30 BMI result Body Mass Index 41.0 Course Course Course Narrative: patient reporting 10+ episodes of diarrhea per day for couple of days. Patient receiving IV fluids, Zofran and loperamide, all of patient's labs pending Medications Administered Discontinued Medications Generic Name Dose Route Start Last Admin Trade Name Dwaineq PRN Reason Stop Dose Admin Lactated Ringer's 1,000 mls @ 999 mls/hr 08/28/25 05:45 08/28/25 05:45 Lr IV 08/28/25 06:45 999 mls/hr .Q1H1M TAMMY Administration Loperamide HCl 4 mg 08/28/25 05:33 08/28/25 05:45 Loperamide Hcl 2 Mg Capsule PO 08/28/25 05:34 4 mg ONCE ONE Administration Ondansetron HCl 4 mg 08/28/25 05:33 08/28/25 05:45 Ondansetron Hcl 4 Mg/2 Ml Vial IVPUSH 08/28/25 05:34 4 mg ONCE ONE Administration Medical Decision Making Medical Decision Making [facility] Narrative: my interpretation of EKG: Normal sinus rhythm, heart rate 81, no ST segment depression, nonspecific T-wave inversion in lead 3, QTC 436 - patient states that he has a known to have an abnormal EKG, patient states that he was told when he was in the [employer] that he has coronary disease. Patient denies any history of STEMI or NSTEMI my interpretation of labs: Patient's white blood cell count 12.4, likely reactive leukocytosis. Chemistry does not show any significant acute abnormality. Patient's bicarb slightly decreased secondary to the diarrhea. LFTs within normal limits. Patient's troponin is normal, BNP normal I discussed the above-mentioned with the patient, patient feeling much better after IV hydration. There is no indication for any further imaging or tests. Patient agrees with plan. Differential Diagnosis Differential Diagnoses: The differential diagnosis associated with the presentation includes ( Atypical chest pain, gastritis, gastroenteritis, viral illness) Admission/Observation Consideration of admission/observation: Escalation of care including admission/observation considered ( given patient's multiple complaints, past medical history and presentation, observation was considered.) Lab Data [facility] Lab Attestation statement: I reviewed the patient's lab results. 08/28/25 05:38 08/28/25 05:38 Labs: Lab Results 08/28/25 Range/Units 05:38 WBC 12.4 H (4.8-10.8) X10*3/uL RBC 5.66 (4.60-5.80) X10*6/uL Hgb 14.8 (14.0-18.0) g/dl Hct 45.0 (42.0-52.0) % MCV 79.5 L (80.0-98.0) fL MCH 26.1 L (27.0-33.0) pg MCHC 32.9 (31.0-36.0) g/dl RDW 13.7 (11.0-16.0) % Plt Count 338 (160-400) X10*3/uL MPV 9.5 (9.4-12.4) fL Immature Gran % (Auto) 0.4 (0.0-0.4) % Neut % (Auto) 76.2 H (45-73) % Lymph % (Auto) 14.9 L (20-40) % [place] % (Auto) 6.9 (2-11) % Eos % (Auto) 1.4 (0-4) % Baso % (Auto) 0.2 (0-2) % Lymph # (Auto) 1.9 (1.2-4.9) X10*3/uL [place] # (Auto) 0.9 (0.1-1.2) X10*3/uL Eos # (Auto) 0.2 (0.0-0.4) X10*3/uL Baso # (Auto) 0.0 (0.0-0.2) X10*3/uL Abs Immat Gran (auto) 0.05 H (0.00-0.03) X10*3/uL Absolute Neuts (auto) 9.5 H (2.0-8.3) x10*3/uL Absolute Nucleated RBC 0.000 (0.0-0.012) X10*3/uL Nucleated RBC % (auto) 0.0 (0.0-0.2) /100WBC Sodium 140 (135-145) mmol/L Potassium 4.0 (3.3-5.1) mmol/L Chloride 109 H (96-108) mmol/L Carbon Dioxide 19 L (22-29) mmol/L Anion Gap 16 (12-20) BUN 18 H (9-16) mg/dL Creatinine 0.79 (0.5-1.4) mg/dL Estim Creat Clear Calc 146.2 Estimated GFR > 60 Random Glucose 120 H (60-115) mg/dL Calcium 9.2 D (8.4-10.2) mg/dL Total Bilirubin 0.3 (0.0-1.0) mg/dL Direct Bilirubin 0.1 (0.0-0.5) mg/dL AST 36 (5-37) U/L ALT 44 H (0-40) U/L Alkaline Phosphatase 92 (39-117) U/L Troponin I High Sens < 2.7 (<3.5-35.0) ng/L NT-Pro-B Natriuret Pep < 15.8 (<300) pg/mL Total Protein 8.2 H (6.5-8.0) g/dL Albumin 4.7 (3.5-5.0) g/dL Critical Care Time Critical Care Time Critical Care Time: Yes Total Critical Care Time: 35 Attestation: I have personally provided critical care time. Time includes review of lab data, radiology results, discussion with consultants, and monitoring for potential decompensation. Intervention performed as documented. Discharge Plan Discharge Clinical Impression: Diarrhea, Dehydration, Atypical chest pain Patient Disposition: Home, Self-Care Instructions: Chest Pain (ED), Dehydration (ED), Acute Diarrhea (ED) Additional Instructions: Please follow-up with your primary care physician tomorrow. If you have any worsening or new symptoms, please return to the emergency room or call 911 Prescriptions: New loperamide 2 mg tablet 2 mg PO Q6H PRN (Reason: loose stool) Qty: 14 0RF No Action xwktmmjfuy-gghedexrhyowm-wzgf [Fioricet] 50-300-40 mg capsule 1 cap PO Q8H PRN (Reason: pain) Qty: 14 0RF amoxicillin-pot clavulanate 875-125 mg tablet 1 tab PO BID Qty: 14 0RF Benadryl Allergy 50 mg tablet 50 mg PO Q8H PRN (Reason: nausea and vomiting) Qty: 20 0RF metoclopramide HCl [Reglan] 10 mg tablet 10 mg PO Q6H PRN (Reason: nausea and vomiting) Qty: 10 0RF Excedrin Migraine 250-250-65 mg tablet 1 tab PO Q6H PRN (Reason: pain (scale score 4-6)) Qty: 10 0RF Stand Alone Forms: Work/School Release Print Language: Ukrainian
[2025-08-28 05:42] LABS: MANUAL DIFF FLAG NO
[2025-08-28 05:43] LABS: Hematocrit 45.0 % (42.0-52.0); Hemoglobin 14.8 g/dl (14.0-18.0); Imm Gran Abs Auto 0.05 X10*3/uL (0.00-0.03); Imm Gran Pct Auto 0.4 % (0.0-0.4); Lymphocytes Absolute Auto 1.9 X10*3/uL (1.2-4.9); Mean Corpuscular HGB Conc 32.9 g/dl (31.0-36.0); Mean Corpuscular Hemoglobin 26.1 pg (27.0-33.0); Mean Corpuscular Volume 79.5 fL (80.0-98.0); NRBC Abs Auto 0.000 X10*3/uL (0.0-0.012); NRBC Pct Auto 0.0 /100WBC (0.0-0.2); Platelet Count 338 X10*3/uL (160-400); Red Blood Count 5.66 X10*6/uL (4.60-5.80); White Blood Count 12.4 X10*3/uL (4.8-10.8)
[2025-08-28] MEDS: Lactated Ringers 1,000 ML 999 ML IV (05:45)
[2025-08-28 06:03] LABS: NT Pro B Type Natriuretic Pept < 15.8 pg/mL (<300)
[2025-08-28 06:20] LABS: Alanine Aminotransferase 44 U/L (0-40); Albumin Level 4.7 g/dL (3.5-5.0); Alkaline Phosphatase 92 U/L (39-117); Anion Gap 16 (12-20); Aspartate Amino Transferase 36 U/L (5-37); Blood Urea Nitrogen 18 mg/dL (9-16); Calcium 9.2 mg/dL (8.4-10.2); Carbon Dioxide 19 mmol/L (22-29); Chloride 109 mmol/L (96-108); Creatinine Clr Calc Pharmacy 146.2; Estimated Glomerular Filt Rate > 60; Potassium 4.0 mmol/L (3.3-5.1); Sodium 140 mmol/L (135-145); Total Protein 8.2 g/dL (6.5-8.0)
[2025-08-28 06:49] LABS: Troponin-I High Sensitivity < 2.7 ng/L (<3.5-35.0)
[2025-08-28 07:12] VITALS: BP 131/86; PULSE 78; RESP 12; TEMP 36.7; O2SAT 96
== END 2025-08-28 07:13 | disposition home or self-care (01) ==
PROVIDERS: Emergency Provider Emergency Medicine
DX: R19.7 Diarrhea, unspecified (principal); E86.0 Dehydration; R07.89 Other chest pain; I10 Essential (primary) hypertension
CPT/HCPCS: 36415; 80048; 80076; 83880; 84484; 85025; 93005; 96374; 99284; J2405; J7120

== ENCOUNTER → 2025-08-28 05:25 | Outpatient (BNV) | payer OTHER, SELFPAY | PROVIDERS: Emergency Provider Emergency Medicine; Visit Provider Internal Medicine Cardiovascular Disease | DX: R07.9 Chest pain, unspecified (principal) | CPT/HCPCS: 93010 ==